=== PATIENT | male | born 1955 | race Hispanic/Latino ===

== ENCOUNTER 2019-04-30 01:38 | Inpatient (IN) | payer SELFPAY ==
[2019-04-30] MEDS ORDERED: hydrALAZINE 20 MG/ML VIAL ONE (02:23)
[2019-04-30 02:30] LABS: Anion Gap 16 mmol/L (10-20); Calc. Creatinine Clearance 0 mL/min (70-130); Calcium 7.9 mg/dL (7.8-10.44); Carbon Dioxide 16 mmol/L (23-31); Chloride 104 mmol/L (98-107); Estimated GFR-MDRD 6; Glucose 105 mg/dL (80-115); Potassium 5.2 mmol/L (3.5-5.1); Sodium 131 mmol/L (136-145)
[2019-04-30 02:36] LABS: Bilirubin Negative (Negative); Blood, Urine Negative (Negative); Clarity Clear (Clear); Glucose, Urine (Dipstick) Normal (Negative); Leukocyte Negative Leu/uL (Negative); Nitrite Negative (Negative); Protein, Urine (Dipstick) Negative (Neg-Trace); Urobilinogen Normal mg/dL (Less than 2)
[2019-04-30 02:43] LABS: BUN (Urea Nitrogen) 121 mg/dL (8.4-25.7)
[2019-04-30] MEDS ORDERED: Bisacodyl 5 MG TAB PO PRN (05:24)
[2019-04-30] MEDS ORDERED: Senokot S 8.6-50 MG TAB PO PRN (05:24)
[2019-04-30] MEDS ORDERED: Acetaminophen 325 MG TAB PO PRN (05:24)
[2019-04-30] MEDS ORDERED: Dextrose 50% Abboject 50 ML SYRINGE SLOW IVP PRN (05:52)
[2019-04-30] MEDS ORDERED: HumaLOG 300 UNITS/3 ML VIAL SC PRN (05:52)
[2019-04-30] MEDS ORDERED: Dextrose 5% in Water 1,000 ML IV PRN (05:52)
--- NOTE | 2019-04-30 07:02 | HP ---
CHIEF COMPLAINT: Abnormal lab values. HISTORY OF PRESENT ILLNESS: The patient is a 63-year-old male, with a history of hypertension, diabetes, who presents to the hospital after elevated potassium. The patient is a very pleasant 63-year-old male with history of hypertension and diabetes, who is following Nephrology due to elevated creatinine and went to get labs, was found to have potassium of 6.6. At this time, the patient was asked to come into the hospital for further evaluation. The patient currently is asymptomatic. Denies any nausea, vomiting, diarrhea, fevers, or chills. He stated that he was not feeling well about a couple of weeks ago, however, that has improved. He denies taking any ibuprofen. The patient states that he has been only taking his prescription medications. PAST MEDICAL HISTORY: Diabetes and hypertension PAST SURGICAL HISTORY: Denies. FAMILY HISTORY: History of renal stones in mom. No history of kidney problems. REVIEW OF SYSTEMS: All negative except for the ones mentioned above in the HPI. ALLERGIES: HE HAS NO KNOWN DRUG ALLERGIES. MEDICATIONS: 1. Hydrochlorothiazide 12.5 daily. 2. Metformin 500 mg twice a day. 3. Lisinopril 40 mg daily. PHYSICAL EXAMINATION: VITAL SIGNS: Temperature of 98.7, 100% on room air, pulse 87, and blood pressure 130/60. GENERAL: He is awake, alert, and oriented x3. Does not appear in distress. CV: S1 and S2 present. No murmurs, rubs, or gallops. LUNGS: Clear to auscultation. No rhonchi or wheezes noted. ABDOMEN: Soft and nontender. Bowel sounds are present x2. EXTREMITIES: No edema. Pedal pulses are present x2. NEUROVASCULAR: There are no focal deficits noted. SKIN: No cuts, lesions, or bruises noted. DIAGNOSTIC DATA: EKG, no peaked T-waves noted. T-waves were normal. LABORATORY RESULTS: WBCs of 7.3, hemoglobin of 10.1, hematocrit of 30.5. Chemistry; sodium of 131, potassium of 5.2 now, BUN of 121, creatinine of 9.05. ASSESSMENT AND PLAN: The patient is a very pleasant 63-year-old male, who presents to the hospital with abnormal lab value. 1. Hyperkalemia, most likely secondary to his underlying chronic kidney disease. Currently, potassium is 5.2. We will continue to monitor. 2. Elevated creatinine. The patient currently is asymptomatic. Nephrology has been consulted. Dialysis per Nephrology if indicated. 3. Hypertension. Would hold off on lisinopril and metformin. We will start the patient on sliding scale insulin and also p.r.n. hydralazine for now. 4. Deep venous thrombosis prophylaxis. We will put the patient on Lovenox. Job ID: [id number]
--- NOTE | 2019-04-30 08:17 | CON ---
DATE OF CONSULTATION: REASON FOR CONSULTATION: Elevated creatinine, hyperkalemia. HISTORY OF PRESENT ILLNESS: This is a 63-year-old gentleman followed by Dr. Bob, who presented to the hospital with hyperkalemia, potassium of 6.6. The patient has had poor appetite and decreasing urinary output. The patient has difficulty urinating. PAST MEDICAL HISTORY: Diabetes mellitus, hypertension, history of renal stone. SOCIAL HISTORY: No alcohol or drug use. FAMILY HISTORY: Negative for ESRD. ALLERGIES: REVIEWED. HOME MEDICATIONS: List reviewed. HOSPITAL MEDICATIONS: Reviewed. ALLERGIES: REVIEWED. REVIEW OF SYSTEMS: A 15-point review of system was performed and was negative except for positives noted above. GENERAL: HEAD: NECK: No swelling or lumps. NOSE: No epistaxis or discharge. EYES: No diplopia or pain. RESPIRATORY: CARDIOVASCULAR: GASTROINTESTINAL: /DELIMER: MUSCULOSKELETAL: No joint pain. NEUROPSYCHIATRIC SYSTEMS: No suicidal ideation. No ideation. SKIN: Denies any rash or ulcer. CONSTITUTIONAL: No fever or chills. PHYSICAL EXAMINATION: See above. The patient is awake and alert. VITAL SIGNS: Pulse 87, breathing 16, blood pressure 130/60. GENERAL APPEARANCE AND MENTAL STATUS: Fair. HEAD/NECK: Normocephalic. Atraumatic. EYES: EOMI. No deformity. EARS: Clear. No ulcers. NOSE: Intact. No lesions. MOUTH: Clear. No discharge. THROAT: Clear. No exudate. LUNGS: Clear. No crackles. CARDIAC: S1, S2. No rub. ABDOMEN: Benign. Bowel sounds positive. GENITALIA/RECTUM: Baltazar absent. BACK/EXTREMITIES: Edema 0+. NEUROLOGICAL: Alert and motor intact. SKIN: LYMPHATICS: LABORATORY DATA: Reviewed. ASSESSMENT: 1. Acute kidney disease on chronic kidney disease due to obstructive versus renal etiology. We will order imaging. 2. Hypertension, stable. 3. Anemia, stable. 4. Hyperkalemia. Continue low-potassium diet and add dialysis as needed. Job ID: [id number]
--- NOTE | 2019-04-30 09:47 | ULT ---
. US Renal Bilateral STANDARD HISTORY: Acute renal insufficiency COMPARISON: None. FINDINGS: The right kidney measures 12.4 cm in length and the left kidney measures 11.2 cm in length. There is bilateral severe hydronephrosis. No renal masses are seen. There is a Baltazar catheter in the urinary bladder. IMPRESSION: Severe bilateral hydronephrosis.
[2019-04-30 14:37] VITALS: BMI 20.9
--- NOTE | 2019-04-30 17:32 | PDOC.HOSPP ---
- Subjective Encounter Date: 04/30/19 Encounter Time: 17:30 Subjective: no pain, etc - Objective Vital Signs & Weight: Vital Signs (12 hours) Temp Pulse Resp BP Pulse Ox 04/30/19 15:40 98.5 F 89 20 165/83 H 100 04/30/19 14:29 98.0 F 85 17 170/82 H 98 Weight Weight 122 lb 6.4 oz Result Diagrams: 04/30/19 01:56 Additional Labs: Accuchecks 04/30/19 04/30/19 16:32 06:43 POC Glucose 119 H 118 H - Exam General Appearance: awake alert Neck: no JVD Heart: RRR, no murmur Respiratory: CTAB Gastrointestinal: soft, normal bowel sounds Extremities: no edema Hosp A/P (1) Acute renal failure Status: Acute Qualifiers: Acute renal failure type: unspecified Qualified Code(s): N17.9 - Acute kidney failure, unspecified (2) Obstructive uropathy Code(s): N13.9 - OBSTRUCTIVE AND REFLUX UROPATHY, UNSPECIFIED Status: Acute (3) Hydronephrosis Code(s): N13.30 - UNSPECIFIED HYDRONEPHROSIS Status: Acute Qualifiers: Hydronephrosis type: other Qualified Code(s): N13.39 - Other hydronephrosis (4) HTN (hypertension) Code(s): I10 - ESSENTIAL (PRIMARY) HYPERTENSION Status: Chronic Qualifiers: Hypertension type: essential hypertension Qualified Code(s): I10 - Essential (primary) hypertension (5) DM type 2 (diabetes mellitus, type 2) Status: Chronic Qualifiers: Diabetes mellitus half-way insulin use: without labor relations supervisor use - Plan discussed with Dr Richard de la garza po fluids plus replacement iv fluids serial BMP accu/ss kervin
[2019-04-30] MEDS: Dextrose 5 %-0.45 % NaCl 1,000 ML IV SCH (18:05)
--- NOTE | 2019-04-30 18:39 | CON ---
DATE OF CONSULTATION: 04/30/2019 HISTORY OF PRESENT ILLNESS: This is a 63-year-old male, speaks only Guyanese, who I am seeing here on the April 30, 2019. He was transferred here, I think from [place] after he was told to go to the ER because of that believe an elevated creatinine and potassium. He was found also have a distended bladder. His catheter was placed in the ER here [facility] and these drained out 1800 mL of urine. The urinalysis was negative. It was clear and his urine output has been very good since that time. He has put out over a L over the last 3 hours. His potassium is 5.2. His creatinine was 9. I do not think there is a plan right now to dialyze him. His vital signs are stable. On talking with him, it sounds like he has had some lower urinary tract symptoms for a number of months, mainly in the morning, he has a very slow stream, it takes a long time to feel like he is emptying his bladder. Does not really get up much at night. He has had no urinary tract infections, blood in the urine or burning when he pees. We had a distant history of kidney stones that he passed that was a few years back. He has not seen a urologist in town. He has not had history of prostate cancer nor family history of prostate cancer. Never had a catheter in his bladder before. He was not having back pain or abdominal pain with this distended bladder and he did have an ultrasound done that showed bilateral hydronephrosis. This was done after the Baltazar was placed, so the bladder at that point was distended already. It is described as severe bilateral hydronephrosis. His urine is somewhat bloody now. It really does not look too bad. I do not think he may need to change the catheter out unless it becomes occluded. He does not have any symptoms of a spinal cord problem. He has not had pain in his back. He has not had lower extremity weakness or numbness. PAST MEDICAL HISTORY: His medical history does include diabetes and he also has high blood pressure. PAST SURGICAL HISTORY: He has not had any surgical procedures done. MEDICATIONS: Medicines are: 1. Hydrochlorothiazide. 2. Metformin. 3. Lisinopril. PHYSICAL EXAMINATION: ABDOMEN: His flanks are nontender. His abdomen is soft and flat. Bladder is not distended. He is not circumcised. There are no lesions. No phimosis. Testicles are descended without mass or tenderness. Rectal exam reveals normal rectal tone. No rectal lesions. Really fairly significantly enlarged prostate was noted. EXTREMITIES: He has not got any lower extremity edema. IMPRESSION AND PLAN: Probably chronic renal failure related to bladder distention. This most likely happened over a fairly significant period of time. I would guess as related to the fact he has had no pain with as much urine as he had in his bladder. Hopefully, we will see his kidney function improved dramatically with drainage of his bladder. I think he does need to be watch for postobstructive diuresis, probably maintenance IV of 150 mL an hour of D5 half-normal saline. I do not think I would put any potassium in at this point, but I would check electrolytes later this evening and if his potassium is normalized, then he probably should have 10 to 20 mEq of potassium per L added as he may end up becoming hypokalemic with this diuresis. I think also he should be allowed to drink water and Gatorade probably alternating them as his thirst mechanism will probably help to correct any problems with fluid shifts that he may develop. He will need with the amount of volume he had in his bladder. He will need to leave this catheter in for probably two or three weeks before doing a bladder pressure study to see if his bladder does work or not. It is possible that this is a bladder dysfunction related outlet obstruction. He does have a large prostate on exam. However, it is certainly possible this could be related to poor bladder emptying and weak bladder related to his diabetes, but that will be figured out down the road. Right now, catheter does have to be left in, should the catheter occluded and then need be hand flushing and/or probably changed out to a larger 18, 20 or even a 22-[facility], if possible. Job ID: [id number]
[2019-04-30 18:41] LABS: Anion Gap 16 mmol/L (10-20); BUN (Urea Nitrogen) 114 mg/dL (8.4-25.7); Calc. Creatinine Clearance 7 mL/min (70-130); Calcium 8.6 mg/dL (7.8-10.44); Carbon Dioxide 19 mmol/L (23-31); Chloride 105 mmol/L (98-107); Estimated GFR-MDRD 6; Glucose 111 mg/dL (80-115); Potassium 5.6 mmol/L (3.5-5.1); Sodium 134 mmol/L (136-145)
[2019-04-30] MEDS: HumaLOG 300 UNITS/3 ML VIAL SC PRN (21:11)
[2019-05-01] MEDS: Dextrose 5 %-0.45 % NaCl 1,000 ML IV SCH ×2 (01:01→07:43)
[2019-05-01 04:41] LABS: #Eosinphils 0.1 thou/uL (0.0-0.7); #Lymphocytes 0.8 thou/uL (1.20-3.40); #Monocytes 0.4 thou/uL (0.11-0.59); #Neutrophils 6.1 thou/uL (1.40-6.50); %Basophils 0.6 % (0.0-1.0); %Lymphocytes 11.3 % (21.0-51.0); %Monocytes 4.9 % (0.0-10.0); %Neutrophils 82.2 % (42.0-75.0); Hemoglobin 9.9 g/dL (14.0-18.0); Mean Corpuscular HGB CONC 33.5 g/dL (32.0-36.0); Mean Corpuscular Hemoglobin 29.1 pg (27.0-31.0); Mean Corpuscular Volume 86.8 fL (78.0-98.0); Mean Platelet Volume 7.2 fL (7.4-10.4); Platelet Count 235 thou/uL (130-400); RBC Distribution Width 11.6 % (11.5-14.5); White Blood Cell (WBC) Count 7.4 thou/uL (4.8-10.8)
[2019-05-01 04:52] LABS: Hemoglobin A1c 6.2 % (4.0-6.0)
[2019-05-01 04:53] LABS: Anion Gap 15 mmol/L (10-20); BUN (Urea Nitrogen) 112 mg/dL (8.4-25.7); Calc. Creatinine Clearance 7 mL/min (70-130); Calcium 7.8 mg/dL (7.8-10.44); Carbon Dioxide 16 mmol/L (23-31); Chloride 104 mmol/L (98-107); Estimated GFR-MDRD 7; Glucose 173 mg/dL (80-115); Potassium 5.1 mmol/L (3.5-5.1); Sodium 130 mmol/L (136-145)
--- NOTE | 2019-05-01 07:11 | PDOC.HOSPP ---
- Subjective Encounter Date: 05/01/19 Encounter Time: 07:04 Subjective: feels well - Objective Vital Signs & Weight: Vital Signs (12 hours) Temp Pulse Resp BP Pulse Ox 05/01/19 03:57 97.3 F L 74 18 157/86 H 97 04/30/19 23:30 98.9 F 89 18 147/82 H 96 04/30/19 20:00 98.4 F 81 18 179/86 H 98 Weight Weight 122 lb 6.4 oz I&O: 04/30/19 05/01/19 05/02/19 06:59 06:59 06:59 Intake Total 2540 Output Total 3650 Balance -1110 Result Diagrams: 05/01/19 04:25 05/01/19 04:25 Additional Labs: Accuchecks 05/01/19 04/30/19 04/30/19 05:35 20:31 16:32 POC Glucose 183 H 332 H 119 H Hospitalist ROS - Medication Medications: Active Medications Generic Name Dose Route Start Last Admin Trade Name Freq PRN Reason Stop Dose Admin Insulin Human Lispro 0 units 04/30/19 20:44 04/30/19 21:11 Humalog SC 4 unit .BEDTIME SLIDING SC PRN Administration Bedtime Correctional Scale - Exam General Appearance: awake alert Neck: no JVD Heart: RRR, no murmur Respiratory: CTAB, no wheezes Gastrointestinal: soft, normal bowel sounds Extremities: no edema Hosp A/P (1) Acute renal failure Status: Acute Qualifiers: Acute renal failure type: unspecified Qualified Code(s): N17.9 - Acute kidney failure, unspecified (2) Obstructive uropathy Code(s): N13.9 - OBSTRUCTIVE AND REFLUX UROPATHY, UNSPECIFIED Status: Acute (3) Hydronephrosis Code(s): N13.30 - UNSPECIFIED HYDRONEPHROSIS Status: Acute Qualifiers: Hydronephrosis type: other Qualified Code(s): N13.39 - Other hydronephrosis (4) HTN (hypertension) Code(s): I10 - ESSENTIAL (PRIMARY) HYPERTENSION Status: Chronic Qualifiers: Hypertension type: essential hypertension Qualified Code(s): I10 - Essential (primary) hypertension (5) DM type 2 (diabetes mellitus, type 2) Status: Chronic Qualifiers: Diabetes mellitus fpc insulin use: without fpc use - Plan discussed with Dr Ramos change iv to NS due to Na 130 cont to monitor UO, BMP BP adequately controlled serial BMP accu/ss galeana
[2019-05-01] MEDS: Sodium Chloride 0.9% 1,000 ML IV SCH ×2 (07:56→16:01)
--- NOTE | 2019-05-01 08:29 | PRG ---
DATE OF SERVICE: 05/01/2019 The patient's vital signs are stable. He is afebrile. He has O2 sats that are good. Blood pressure is up slightly. His creatinine is a little bit lower at 7.8. He has had good urine output and his urine is still slightly blood tinged, but is much clear. His potassium is 5.1. At this point I am just going to leave his Baltazar catheter in and continue some IV fluid replacement based on it as well as p.o. fluid replacement hopefully will see his kidney function continued to improve with indwelling Baltazar down the road in 2 to 3 weeks when the cystometrogram done. Job ID: [id number]
[2019-05-01] MEDS ORDERED: FLU VACC QS2019-20(6MOS UP)/PF 60 MCG/0.5 ML SYRINGE IM ONE (09:00)
--- NOTE | 2019-05-01 10:01 | PRG ---
DATE OF SERVICE: 05/01/2019 SUBJECTIVE: This is a 63-year-old gentleman, being seen for acute kidney injury. The patient denied nausea, vomiting, or chest pain. OBJECTIVE: CONSTITUTIONAL: The patient is awake, alert. VITAL SIGNS: Afebrile, pulse 75, breathing 16, blood pressure 157/86. GENERAL APPEARANCE AND MENTAL STATUS: Fair. HEAD/NECK: Normocephalic. Atraumatic. EYES: EOMI. No deformity. EARS: Clear. No ulcers. NOSE: Intact. No lesions. MOUTH: Clear. No discharge. THROAT: Clear. No exudate. LUNGS: Clear. No crackles. CARDIAC: S1, S2. No rub. ABDOMEN: Benign. Bowel sounds positive. GENITALIA/RECTUM: Baltazar absent. BACK/EXTREMITIES: Edema 0+. NEUROLOGICAL: Alert and motor intact. SKIN: LYMPHATICS: LABORATORY DATA: Labs reviewed. ASSESSMENT: 1. Acute kidney injury, improved. 2. Hypertension, stable. 3. Anemia, stable. 4. Hyperkalemia, improved. No indication for dialysis. 5. Metabolic acidosis. Start the patient on sodium bicarbonate. Job ID: [id number]
[2019-05-01] MEDS: hydrALAZINE 20 MG/ML VIAL SLOW IVP PRN (12:20)
[2019-05-01] MEDS: Sodium Bicarbonate 50 MEQ in Sodium Chloride 0.9% 1,000 ML IV SCH (17:35)
[2019-05-01] MEDS: HumaLOG 300 UNITS/3 ML VIAL SC PRN (21:28)
[2019-05-02] MEDS: Sodium Bicarbonate 50 MEQ in Sodium Chloride 0.9% 1,000 ML IV SCH ×3 (01:39→15:44)
--- NOTE | 2019-05-02 09:21 | PDOC.HOSPP ---
- Subjective Encounter Date: 05/02/19 Encounter Time: 07:20 Subjective: Patient seen and examined. No new complaints. No overnight events - Objective Vital Signs & Weight: Vital Signs (12 hours) Temp Pulse Resp BP Pulse Ox 05/02/19 07:35 96 05/02/19 07:34 98.0 F 80 18 160/78 H 96 05/02/19 04:30 97.9 F 93 16 122/69 98 05/02/19 00:03 144/66 H Weight Admit Weight 122 lb 6.4 oz Weight 122 lb 6.4 oz I&O: 05/01/19 05/02/19 05/03/19 06:59 06:59 06:59 Intake Total 2540 4500 Output Total 3650 5400 Balance -1110 -900 Result Diagrams: 05/01/19 04:25 05/01/19 04:25 Additional Labs: Accuchecks 05/02/19 05/01/19 05/01/19 06:13 19:46 16:45 POC Glucose 97 253 H 140 H 05/01/19 11:23 POC Glucose 137 H Radiology Reviewed by me: Yes EKG Reviewed by me: Yes Hospitalist ROS - Review of Systems Constitutional: denies: fever, chills, sweats, weakness, malaise, other Eyes: denies: pain, vision change, conjunctivae inflammation, eyelid inflammation, redness, other ENT: denies: ear pain, ear discharge, nose pain, nose discharge, nose congestion , mouth pain, mouth swelling, throat pain, throat swelling, other Respiratory: denies: cough, dry, shortness of breath, hemoptysis, SOB with excertion, pleuritic pain, sputum, wheezing, other Cardiovascular: denies: chest pain, palpitations, orthopnea, paroxysmal noc. dyspnea, edema, light headedness, other Gastrointestinal: denies: nausea, vomiting, abdominal pain, diarrhea, constipation, melena, hematochezia, other Genitourinary: denies: dysuria, frequency, incontinence, hematuria, retention, other Musculoskeletal: denies: neck pain, shoulder pain, arm pain, back pain, hand pain, leg pain, foot pain, other Skin: denies: rash, lesions, kacey, bruising, other - Medication Medications: Active Medications Generic Name Dose Route Start Last Admin Trade Name Freq PRN Reason Stop Dose Admin Hydralazine HCl 5 mg 04/30/19 05:54 05/01/19 12:20 Apresoline SLOW IVP 5 mg Q6H PRN Administration Blood Pressure Sodium Bicarbonate 50 meq/ 1,050 mls @ 150 mls/hr 05/01/19 16:00 05/02/19 08: 07 Sodium Chloride IV 1,050 mls .Q7H DIXON Administration Insulin Human Lispro 0 units 04/30/19 20:44 05/01/19 21:28 Humalog SC 3 unit .BEDTIME SLIDING SC PRN Administration Bedtime Correctional Scale - Exam General Appearance: NAD, awake alert Eye: PERRL, anicteric sclera ENT: normocephalic atraumatic, no oropharyngeal lesions Neck: supple, symmetric, no JVD, no thyromegaly Heart: RRR, no murmur, no gallops, no rubs Respiratory: CTAB, no wheezes, no rales, no ronchi Gastrointestinal: soft, non-tender, non-distended, normal bowel sounds Extremities: no cyanosis, no clubbing, no edema Extremities - other findings: galeana+ Skin: normal turgor, no lesions Neurological: no focal deficits Musculoskeletal: normal tone, normal strength Psychiatric: normal affect, normal behavior Hosp A/P (1) Acute renal failure Status: Acute Qualifiers: Acute renal failure type: unspecified Qualified Code(s): N17.9 - Acute kidney failure, unspecified (2) Hydronephrosis Code(s): N13.30 - UNSPECIFIED HYDRONEPHROSIS Status: Acute Qualifiers: Hydronephrosis type: other Qualified Code(s): N13.39 - Other hydronephrosis (3) Obstructive uropathy Code(s): N13.9 - OBSTRUCTIVE AND REFLUX UROPATHY, UNSPECIFIED Status: Acute (4) DM type 2 (diabetes mellitus, type 2) Status: Chronic Qualifiers: Diabetes mellitus intermediate designer insulin use: without intermediate designer use (5) HTN (hypertension) Code(s): I10 - ESSENTIAL (PRIMARY) HYPERTENSION Status: Chronic Qualifiers: Hypertension type: essential hypertension Qualified Code(s): I10 - Essential (primary) hypertension (6) Hyponatremia Code(s): E87.1 - HYPO-OSMOLALITY AND HYPONATREMIA Status: Acute (7) Hyperkalemia Code(s): E87.5 - HYPERKALEMIA Status: Acute (8) Anemia, normocytic normochromic Code(s): D64.9 - ANEMIA, UNSPECIFIED Status: Chronic - Plan old records reviewed/req, plan discussed w/ family 05/02/19 monitor renal function continue IVF for post obstructive diuresis nephrology and urology following add flomax continue galeana
--- NOTE | 2019-05-02 09:41 | PRG ---
DATE OF SERVICE: 05/02/2019 SUBJECTIVE: A 63-year-old gentleman, being seen for acute kidney injury. The patient denies any nausea, vomiting, or chest pain. OBJECTIVE: GENERAL: The patient is awake and alert. VITAL SIGNS: Afebrile, pulse 80, breathing 16, blood pressure 160/78. GENERAL APPEARANCE AND MENTAL STATUS: Fair. HEAD/NECK: Normocephalic. Atraumatic. EYES: EOMI. No deformity. EARS: Clear. No ulcers. NOSE: Intact. No lesions. MOUTH: Clear. No discharge. THROAT: Clear. No exudate. LUNGS: Clear. No crackles. CARDIAC: S1, S2. No rub. ABDOMEN: Benign. Bowel sounds positive. GENITALIA/RECTUM: Baltazar absent. BACK/EXTREMITIES: Edema 0+. NEUROLOGICAL: Alert and motor intact. SKIN: LYMPHATICS: LABORATORY DATA: Pending. ASSESSMENT AND PLAN: 1. Chronic kidney disease, stage 5. Recheck labs. 2. Hypertension, stable. 3. Anemia, stable. 4. Metabolic acidosis. Check labs again. We would recommend changing the bicarb drip to D5 water with 3 amps of sodium bicarbonate instead of normal saline. Job ID: [id number]
[2019-05-02 09:48] LABS: Anion Gap 16 mmol/L (10-20); BUN (Urea Nitrogen) 90 mg/dL (8.4-25.7); Calc. Creatinine Clearance 9 mL/min (70-130); Calcium 7.5 mg/dL (7.8-10.44); Carbon Dioxide 20 mmol/L (23-31); Chloride 107 mmol/L (98-107); Estimated GFR-MDRD 8; Glucose 199 mg/dL (80-115); Potassium 4.8 mmol/L (3.5-5.1); Sodium 138 mmol/L (136-145)
--- NOTE | 2019-05-02 12:22 | PRG ---
DATE OF SERVICE: 05/02/2019 This is a 63-year-old male, I am seeing today in room 262 at [facility]. He is in with urinary retention, bilateral hydronephrosis and renal failure. His creatinine has gone from 9 on admission to 6.6 today, so it is steadily improving. He has had very good urine output. He is taking fluids okay now. It looks like he made over 5 L of urine output yesterday. Microbiology was negative at 48 hours. His carbon dioxide is 20 and it is steadily improving. Sugars have been okay. It looks like he has continued to improve in terms of a renal function. His catheter need to be 2 or 3 weeks. I will get a visit set up in my office for cystometrogram. At that time, he is reporting some occasional bladder spasm. This could be treated with some Ditropan or Detrol 1 however, they have side effects and if he is not having much in the way of spasms, I think will be probably better to keep him off these medicines, but if they persist or get worse, he could be treated with these. I will leave it up to the primary care team. I will be away this weekend and there will be a urologist on-call. For me, should Urology consultation this weekend be necessary. Otherwise, if he is still here on Sunday, I will check on him. If not, I will arrange followup in the office. Job ID: [id number]
[2019-05-02] MEDS: Sodium Chloride 0.9% 1,000 ML IV SCH (17:50)
[2019-05-02] MEDS: HumaLOG 300 UNITS/3 ML VIAL SC PRN (21:51)
[2019-05-03] MEDS: Sodium Chloride 0.9% 1,000 ML IV SCH ×2 (04:12→15:15)
[2019-05-03] MEDS: Tamsulosin HCl 0.4 MG CAP PO SCH (09:08)
--- NOTE | 2019-05-03 09:37 | PRG ---
DATE OF SERVICE: 05/03/2019 SUBJECTIVE: A 63-year-old gentleman, being seen for acute kidney injury. The patient denies any nausea, vomiting, or chest pain. OBJECTIVE: GENERAL: The patient is awake and alert. VITAL SIGNS: Afebrile. Pulse 75, breathing 16, blood pressure 132/82. GENERAL APPEARANCE AND MENTAL STATUS: Fair. HEAD/NECK: Normocephalic. Atraumatic. EYES: EOMI. No deformity. EARS: Clear. No ulcers. NOSE: Intact. No lesions. MOUTH: Clear. No discharge. THROAT: Clear. No exudate. LUNGS: Clear. No crackles. CARDIAC: S1, S2. No rub. ABDOMEN: Benign. Bowel sounds positive. GENITALIA/RECTUM: Baltazar absent. BACK/EXTREMITIES: Edema 0+. NEUROLOGICAL: Alert and motor intact. SKIN: LYMPHATICS: LABORATORY DATA: Labs reviewed. ASSESSMENT AND PLAN: 1. Chronic kidney disease, stage 5 with improvement in creatinine. Today's labs are pending. 2. Hypertension, stable. 3. Anemia, stable. 4. Hyperkalemia, stable. No indication for dialysis. Job ID: [id number]
[2019-05-03 09:54] LABS: Anion Gap 15 mmol/L (10-20); BUN (Urea Nitrogen) 78 mg/dL (8.4-25.7); Calc. Creatinine Clearance 11 mL/min (70-130); Calcium 7.3 mg/dL (7.8-10.44); Carbon Dioxide 20 mmol/L (23-31); Chloride 104 mmol/L (98-107); Estimated GFR-MDRD 10; Glucose 179 mg/dL (80-115); Sodium 134 mmol/L (136-145)
[2019-05-03 10:17] LABS: Phosphorus 4.8 mg/dL (2.3-4.7)
--- NOTE | 2019-05-03 11:50 | PDOC.HOSPP ---
- Subjective Encounter Date: 05/03/19 Encounter Time: 07:30 Subjective: Patient seen and examined. No new complaints. No overnight events - Objective Vital Signs & Weight: Vital Signs (12 hours) Temp Pulse Resp BP Pulse Ox 05/03/19 03:25 98.1 F 92 16 132/82 98 Weight Admit Weight 122 lb 6.4 oz Weight 126 lb I&O: 05/02/19 05/03/19 05/04/19 06:59 06:59 06:59 Intake Total 4500 2500 Output Total 5400 5225 Balance -900 -2042 Result Diagrams: 05/01/19 04:25 05/03/19 09:14 Additional Labs: Accuchecks 05/03/19 05/03/19 05/02/19 11:00 06:00 20:03 POC Glucose 127 H 90 273 H 05/02/19 16:13 POC Glucose 174 H Radiology Reviewed by me: Yes EKG Reviewed by me: Yes Hospitalist ROS - Review of Systems ENT: denies: ear pain, ear discharge, nose pain, nose discharge, nose congestion , mouth pain, mouth swelling, throat pain, throat swelling, other Respiratory: denies: cough, dry, shortness of breath, hemoptysis, SOB with excertion, pleuritic pain, sputum, wheezing, other Cardiovascular: denies: chest pain, palpitations, orthopnea, paroxysmal noc. dyspnea, edema, light headedness, other Gastrointestinal: denies: nausea, vomiting, abdominal pain, diarrhea, constipation, melena, hematochezia, other Genitourinary: denies: dysuria, frequency, incontinence, hematuria, retention, other Musculoskeletal: denies: neck pain, shoulder pain, arm pain, back pain, hand pain, leg pain, foot pain, other - Medication Medications: Active Medications Generic Name Dose Route Start Last Admin Trade Name Freq PRN Reason Stop Dose Admin Hydralazine HCl 5 mg 04/30/19 05:54 05/01/19 12:20 Apresoline SLOW IVP 5 mg Q6H PRN Administration Blood Pressure Sodium Chloride 1,000 mls @ 100 mls/hr 05/02/19 16:45 05/03/19 04:12 Normal Saline 0.9% IV 1,000 mls .Q10H DIXON Administration Insulin Human Lispro 0 units 04/30/19 20:44 05/02/19 21:51 Humalog SC 3 unit .BEDTIME SLIDING SC PRN Administration Bedtime Correctional Scale Tamsulosin HCl 0.4 mg 05/03/19 09:00 05/03/19 09:08 Flomax PO 0.4 mg DAILY DIXON Administration - Exam General Appearance: NAD, awake alert Eye: PERRL, anicteric sclera ENT: normocephalic atraumatic, no oropharyngeal lesions Neck: supple, symmetric, no JVD, no thyromegaly Heart: RRR, no murmur, no gallops, no rubs Respiratory: CTAB, no wheezes, no rales, no ronchi Gastrointestinal: soft, non-tender, non-distended, normal bowel sounds Extremities: no cyanosis, no clubbing, no edema Skin: normal turgor, no lesions Neurological: cranial nerve grossly intact, no focal deficits Musculoskeletal: normal tone, normal strength Psychiatric: normal affect, normal behavior Hosp A/P (1) Acute renal failure Status: Acute Qualifiers: Acute renal failure type: unspecified Qualified Code(s): N17.9 - Acute kidney failure, unspecified (2) Hydronephrosis Code(s): N13.30 - UNSPECIFIED HYDRONEPHROSIS Status: Acute Qualifiers: Hydronephrosis type: other Qualified Code(s): N13.39 - Other hydronephrosis (3) Obstructive uropathy Code(s): N13.9 - OBSTRUCTIVE AND REFLUX UROPATHY, UNSPECIFIED Status: Acute (4) DM type 2 (diabetes mellitus, type 2) Status: Chronic Qualifiers: 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: without 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 use (5) HTN (hypertension) Code(s): I10 - ESSENTIAL (PRIMARY) HYPERTENSION Status: Chronic Qualifiers: Hypertension type: essential hypertension Qualified Code(s): I10 - Essential (primary) hypertension (6) Hyponatremia Code(s): E87.1 - HYPO-OSMOLALITY AND HYPONATREMIA Status: Acute (7) Hyperkalemia Code(s): E87.5 - HYPERKALEMIA Status: Acute (8) Anemia, normocytic normochromic Code(s): D64.9 - ANEMIA, UNSPECIFIED Status: Chronic - Plan old records reviewed/req, plan discussed w/ family 05/02/19 monitor renal function continue IVF for post obstructive diuresis nephrology and urology following add flomax continue galeana 05/03/19 creatinine is improving continue IVF DC tele Transfer to medical floor stable and improving
[2019-05-03] MEDS: hydrALAZINE 20 MG/ML VIAL SLOW IVP PRN (11:57)
--- NOTE | 2019-05-03 15:03 | EKG ---
Test Reason : Blood Pressure : / mmHG Vent. Rate : 085 BPM Atrial Rate : 085 BPM P-R Int : 132 ms QRS Dur : 076 ms QT Int : 356 ms P-R-T Axes : 051 015 058 degrees QTc Int : 423 ms Normal sinus rhythm Normal ECG Confirmed by SUREKHA PIERRE ([id number]), photograph editor DEMETRIUS NGUYỄN ([id number]) on 05/03/2019 3:03:11 PM Referred By: Confirmed By:SUREKHA PIERRE
[2019-05-03] MEDS: HumaLOG 300 UNITS/3 ML VIAL SC PRN (22:56)
[2019-05-04] MEDS: Sodium Chloride 0.9% 1,000 ML IV SCH ×3 (02:18→21:16)
[2019-05-04 04:47] LABS: Anion Gap 15 mmol/L (10-20); BUN (Urea Nitrogen) 72 mg/dL (8.4-25.7); Calc. Creatinine Clearance 12 mL/min (70-130); Calcium 6.8 mg/dL (7.8-10.44); Carbon Dioxide 19 mmol/L (23-31); Chloride 100 mmol/L (98-107); Estimated GFR-MDRD 12; Glucose 183 mg/dL (80-115); Potassium 4.3 mmol/L (3.5-5.1); Sodium 130 mmol/L (136-145)
[2019-05-04] MEDS: Tamsulosin HCl 0.4 MG CAP PO SCH (07:59)
--- NOTE | 2019-05-04 12:45 | PDOC.HOSPP ---
- Subjective Encounter Date: 05/04/19 Encounter Time: 09:00 - Objective Vital Signs & Weight: Vital Signs (12 hours) Temp Pulse Resp BP BP Pulse Ox 05/04/19 11:00 97.7 F 84 18 144/79 H 98 05/04/19 08:00 98 05/04/19 07:50 98.1 F 78 18 134/76 98 05/04/19 04:27 98.3 F 86 16 137/71 98 05/04/19 00:54 98.5 F 90 16 139/78 98 Weight Admit Weight 122 lb 6.4 oz Weight 126 lb I&O: 05/03/19 05/04/19 05/05/19 06:59 06:59 06:59 Intake Total 3410 5980 Output Total 4856 8954 Balance -1306 -9916 Result Diagrams: 05/01/19 04:25 05/04/19 04:11 Additional Labs: Accuchecks 05/04/19 05/04/19 05/03/19 11:02 04:30 19:38 POC Glucose 152 H 209 H 221 H 05/03/19 17:19 POC Glucose 114 H Hospitalist ROS - Review of Systems Eyes: denies: pain, vision change, conjunctivae inflammation, eyelid inflammation, redness, other ENT: denies: ear pain, ear discharge, nose pain, nose discharge, nose congestion , mouth pain, mouth swelling, throat pain, throat swelling, other Respiratory: denies: cough, dry, shortness of breath, hemoptysis, SOB with excertion, pleuritic pain, sputum, wheezing, other Cardiovascular: denies: chest pain, palpitations, orthopnea, paroxysmal noc. dyspnea, edema, light headedness, other Gastrointestinal: denies: nausea, vomiting, abdominal pain, diarrhea, constipation, melena, hematochezia, other Genitourinary: denies: dysuria, frequency, incontinence, hematuria, retention, other Musculoskeletal: denies: neck pain, shoulder pain, arm pain, back pain, hand pain, leg pain, foot pain, other - Medication Medications: Active Medications Generic Name Dose Route Start Last Admin Trade Name Freq PRN Reason Stop Dose Admin Hydralazine HCl 5 mg 04/30/19 05:54 05/03/19 11:57 Apresoline SLOW IVP 5 mg Q6H PRN Administration Blood Pressure Sodium Chloride 1,000 mls @ 100 mls/hr 05/02/19 16:45 05/04/19 12:43 Normal Saline 0.9% IV 1,000 mls .Q10H DIXON Administration Insulin Human Lispro 0 units 04/30/19 05:52 05/04/19 05:31 Humalog SC 3 unit .MILD SLIDING SCALE PRN Administration Mild Correctional Scale Insulin Human Lispro 0 units 04/30/19 20:44 05/03/19 22:56 Humalog SC 2 unit .BEDTIME SLIDING SC PRN Administration Bedtime Correctional Scale Tamsulosin HCl 0.4 mg 05/03/19 09:00 05/04/19 07:59 Flomax PO 0.4 mg DAILY DIXON Administration - Exam General Appearance: NAD, awake alert Eye: PERRL, anicteric sclera ENT: normocephalic atraumatic, no oropharyngeal lesions Neck: supple, symmetric, no JVD, no thyromegaly Heart: RRR, no murmur, no gallops, no rubs Respiratory: CTAB, no wheezes, no rales Gastrointestinal: soft, non-tender, non-distended, normal bowel sounds Gastrointestinal - other findings: galeana + Extremities: no cyanosis, no clubbing, no edema Skin: normal turgor, no lesions Neurological: no focal deficits Musculoskeletal: normal tone, normal strength Psychiatric: normal affect, normal behavior Hosp A/P (1) Acute renal failure Status: Acute Qualifiers: Acute renal failure type: unspecified Qualified Code(s): N17.9 - Acute kidney failure, unspecified (2) Hydronephrosis Code(s): N13.30 - UNSPECIFIED HYDRONEPHROSIS Status: Acute Qualifiers: Hydronephrosis type: other Qualified Code(s): N13.39 - Other hydronephrosis (3) Obstructive uropathy Code(s): N13.9 - OBSTRUCTIVE AND REFLUX UROPATHY, UNSPECIFIED Status: Acute (4) DM type 2 (diabetes mellitus, type 2) Status: Chronic Qualifiers: Diabetes mellitus residential insulin use: 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 (5) HTN (hypertension) Code(s): I10 - ESSENTIAL (PRIMARY) HYPERTENSION Status: Chronic Qualifiers: Hypertension type: essential hypertension Qualified Code(s): I10 - Essential (primary) hypertension (6) Hyponatremia Code(s): E87.1 - HYPO-OSMOLALITY AND HYPONATREMIA Status: Acute (7) Hyperkalemia Code(s): E87.5 - HYPERKALEMIA Status: Acute (8) Anemia, normocytic normochromic Code(s): D64.9 - ANEMIA, UNSPECIFIED Status: Chronic - Plan old records reviewed/req, plan discussed w/ family 05/02/19 monitor renal function continue IVF for post obstructive diuresis nephrology and urology following add flomax continue galeana 05/03/19 creatinine is improving continue IVF DC tele Transfer to medical floor stable and improving 05/04/19 renal function continue to improve expecting discharge tomorrow if nephrology and urology clears
--- NOTE | 2019-05-04 13:00 | PRG ---
DATE OF SERVICE: 05/04/2019 SUBJECTIVE: This is a 63-year-old gentleman, being seen for acute kidney injury. The patient denied nausea or chest pain. OBJECTIVE: GENERAL: The patient is awake and alert. VITAL SIGNS: Pulse 78, breathing 16, blood pressure 134/76. GENERAL APPEARANCE AND MENTAL STATUS: Fair. HEAD/NECK: Normocephalic. Atraumatic. EYES: EOMI. No deformity. EARS: Clear. No ulcers. NOSE: Intact. No lesions. MOUTH: Clear. No discharge. THROAT: Clear. No exudate. LUNGS: Clear. No crackles. CARDIAC: S1, S2. No rub. ABDOMEN: Benign. Bowel sounds positive. GENITALIA/RECTUM: Baltazar absent. BACK/EXTREMITIES: Edema 0+. NEUROLOGICAL: Alert and motor intact. SKIN: LYMPHATICS: LABORATORY DATA: Hemoglobin is 9.9. Creatinine is 5.06. ASSESSMENT AND PLAN: 1. Acute kidney injury on chronic kidney disease stage 5, improved. 2. Hypertension, stable. 3. Anemia, stable. 4. Hyperkalemia, stable. No indication for dialysis. Job ID: [id number]
[2019-05-04] MEDS: HumaLOG 300 UNITS/3 ML VIAL SC PRN (20:59)
[2019-05-05] MEDS ORDERED: Sodium Chloride 0.9% 1,000 ML IV SCH (08:13)
[2019-05-05] MEDS: Tamsulosin HCl 0.4 MG CAP PO SCH (08:24)
[2019-05-05] MEDS: Sodium Chloride 0.9% 1,000 ML IV SCH (08:27)
[2019-05-05 09:05] LABS: #Eosinphils 0.3 thou/uL (0.0-0.7); #Monocytes 0.4 thou/uL (0.11-0.59); #Neutrophils 4.7 thou/uL (1.40-6.50); %Basophils 0.4 % (0.0-1.0); %Eosinophils 4.1 % (0.0-10.0); %Monocytes 6.3 % (0.0-10.0); %Neutrophils 73.2 % (42.0-75.0); Hemoglobin 8.9 g/dL (14.0-18.0); Mean Corpuscular HGB CONC 33.5 g/dL (32.0-36.0); Mean Corpuscular Hemoglobin 29.8 pg (27.0-31.0); Mean Platelet Volume 7.2 fL (7.4-10.4); Platelet Count 215 thou/uL (130-400); RBC Distribution Width 11.7 % (11.5-14.5); Red Blood Cell (RBC) Count 2.98 mill/uL (4.70-6.10); White Blood Cell (WBC) Count 6.4 thou/uL (4.8-10.8)
[2019-05-05 09:25] LABS: Anion Gap 14 mmol/L (10-20); BUN (Urea Nitrogen) 63 mg/dL (8.4-25.7); Calc. Creatinine Clearance 13 mL/min (70-130); Calcium 6.8 mg/dL (7.8-10.44); Carbon Dioxide 17 mmol/L (23-31); Chloride 102 mmol/L (98-107); Estimated GFR-MDRD 13; Glucose 196 mg/dL (80-115); Potassium 4.9 mmol/L (3.5-5.1); Sodium 128 mmol/L (136-145)
--- NOTE | 2019-05-05 11:06 | PRG ---
DATE OF SERVICE: 05/05/2019 SUBJECTIVE: A 63-year-old gentleman, being seen for acute kidney injury. The patient denied nausea, vomiting, or chest pain. OBJECTIVE: CONSTITUTIONAL: The patient is awake, alert. VITAL SIGNS: Afebrile, pulse 88, breathing 16, blood pressure 155/73. GENERAL APPEARANCE AND MENTAL STATUS: Fair. HEAD/NECK: Normocephalic. Atraumatic. EYES: EOMI. No deformity. EARS: Clear. No ulcers. NOSE: Intact. No lesions. MOUTH: Clear. No discharge. THROAT: Clear. No exudate. LUNGS: Clear. No crackles. CARDIAC: S1, S2. No rub. ABDOMEN: Benign. Bowel sounds positive. GENITALIA/RECTUM: Baltazar absent. BACK/EXTREMITIES: Edema 0+. NEUROLOGICAL: Alert and motor intact. SKIN: LYMPHATICS: LABORATORY DATA: Hemoglobin 8.9. Creatinine 4.6. ASSESSMENT AND PLAN: 1. Acute kidney injury, chronic kidney disease stage 5, improved. 2. Hypertension, stable. 3. Anemia, stable. 4. Hyponatremia, stable. 5. Metabolic acidosis, stable. No indication for dialysis. The patient will follow up with Dr. Diego in 1 to 2 weeks. 6. Hypocalcemia. I would recommend starting the patient on two Tums t.i.d. Job ID: [id number]
[2019-05-05 12:03] VITALS: BP 139/82; TEMP 98
--- NOTE | 2019-05-05 13:03 | DIS ---
DATE OF ADMISSION: 04/30/2019 DATE OF DISCHARGE: 05/05/2019 PRIMARY CARE PHYSICIAN: [facility] Call Admission. DISCHARGE DISPOSITION: Home. PRIMARY DISCHARGE DIAGNOSES: 1. Acute kidney failure due to obstructive uropathy. 2. Urinary retention. 3. Metabolic acidosis and hyperkalemia, resolved. SECONDARY DISCHARGE DIAGNOSES: 1. Diabetes, type 2. 2. Hypertension. 3. Anemia, chronic normocytic. PRIMARY PROCEDURE/OPERATION: None. RADIOLOGICAL INVESTIGATION: Renal ultrasound showed severe bilateral hydronephrosis. SIGNIFICANT LABORATORY DATA: WBC 6.4, hemoglobin 8.9, platelets 215. Sodium 128, potassium 4.9, BUN 63, creatinine 4.66, calcium 6.8, PSA 6.27, PTH 358, phosphorus 4.8. Urinalysis normal. Urine culture negative. DISCHARGE MEDICATIONS: 1. Flomax 0.4 mg p.o. daily. 2. Humalog insulin as per sliding scale. 3. Amlodipine 5 mg p.o. daily. CONTRAINDICATION: None. CODE STATUS: Full code. INPATIENT RELATIONSHIP ASSOC: 1. Dr. Dominick Olsen, Urology. 2. Dr. Paulino Calloway, Nephrology. TEST RESULTS PENDING ON DISCHARGE: None. ALLERGIES: NO KNOWN DRUG ALLERGIES. DISCHARGE PLAN: Posthospital, the patient will follow up with Dr. Dominick Olsen in one week as well as Dr. Jennyfer Diego in one week. The patient will follow up with primary care physician. HOSPITAL COURSE: A 63-year-old male, who was admitted by Dr. Neelima Nguyen, please see her H and P for further details. The patient was having urinary retention and the patient was found with bilateral hydronephrosis. He was admitted for abnormal labs. He was having hyperkalemia as well as acute kidney failure. He was evaluated by Urology and Nephrology while in hospital, he required Baltazar catheter and subsequently his renal function started improving slowly. The patient was also having postobstructive diuresis that was treated with IV fluid while in hospital. We have to discontinue his metformin and lisinopril because of kidney failure and instead, we started Humalog insulin as per sliding scale and amlodipine 5 mg p.o. daily for hypertension. Flomax was also prescribed. The patient will follow up with Urology and Nephrology after discharge. The patient's renal function is slowly improving and he is euvolemic and he is asymptomatic. Both consultants cleared him for discharge and they will follow up with him as an outpatient basis. The patient is discharged with Baltazar catheter in place. The patient is seen and examined at bedside today. Plan of care discussed with the patient and . PHYSICAL EXAMINATION: VITAL SIGNS: Currently, temperature 98.0, pulse 79, respiratory rate 18, saturation 100%, blood pressure 139/82. GENERAL: The patient is currently alert, awake, in no acute distress. HEENT: Head, normocephalic and atraumatic. Eyes; pupils are round, reactive to light. Extraocular muscle intact. ENT, oropharynx within normal limits. Moist mucous membranes. No oral lesion. No pharyngeal erythema. No exudate. NECK: Supple. No JVD. No meningeal signs of irritation. LUNGS: Clear to auscultation without any rhonchi or rales. CARDIAC: S1 and S2, regular. No murmur. No gallop. No rub. ABDOMEN: Soft, bowel sounds present, nontender, nondistended. No organomegaly. No mass. EXTREMITIES: No edema. : Baltazar catheter in place. NEUROLOGIC: Nonfocal examination. The patient is medically stable for discharge today. Job ID: [id number]
--- NOTE | 2019-05-05 14:08 | PRG ---
DATE OF SERVICE: 05/05/2019 He has been moved over the weekend from the telemetry floor up to [id number]. His vital signs are stable. He has had very good urine output. His creatinine has come down to 4.6. This is steadily decreasing. His hemoglobin is 8.9. Urine is clear. He is eating and drinking adequately. I do believe from my standpoint, he can be discharged home. He will come back to see me in my office on May 19 at 10:30 a.m. He has been asked to arrive at 10:10 a.m. We will do a cystometrogram and a cysto on him at that time. He will go home with the catheter in. He does not need to be on Flomax right now, so I do not think I would send him out on Flomax. Job ID: [id number]
--- NOTE | 2019-05-07 02:29 | PQF ---
Yandel Vizcaino SALIM NOORJIBHAI MD [id number] CLINICAL DOCUMENTATION CLARIFICATION FORM: POST DISCHARGE Addendum to original discharge summary date: ____ Late entry note date: __ DATE:05/07/2019 ATTN:JIMMIE CAAL MD Please exercise your independent, professional judgment in responding to the clarification form. Clinical indicators are provided on the bottom of this form for your review Please check appropriate box(s): Conflicting documentation was noted in the Medical Record, please clarify if patient is being treated/monitored for: [ ] End stage renal disease [ ] Chronic kidney disease stage 5 [ X ] Other diagnosis ___AKI with ATN due to obstructive uropathy [ ] Unable to determine For continuity of documentation, please document condition throughout progress notes and discharge summary. Thank You. CLINICAL INDICATORS - SIGNS / SYMPTOMS/ LABS PMH: End stage renal disease-Documented in ED on 04/30 by Daphne Esquivel [id number] in H&P on 04/30 by Neelima Nguyen Creatinine-9.05-Documented in H&P on 04/30 by Neelima Nguyen Acute kidney injury, Chronic kidney disease stage 5-Documented in PN on 05/05 by Paulino Calloway Hyperkalemia-Documented in hospitalist progress note on 05/04 by David Banda MD Hyponatremia-Documented in hospitalist progress note on 05/04 by David Banda MD Estimated [id number] in Laboratory RISK FACTORS Acute kidney injury,-Documented in PN on 05/05 by Paulino Calloway Hyperkalemia-Documented in hospitalist progress note on 05/04 by David Banda MD Hyponatremia-Documented in hospitalist progress note on 05/04 by David Banda MD TREATMENT Monitor renal function-Documented in hospitalist progress note on 05/04 by David Banda MD Continue IVF for post obstructive diuresis-Documented in hospitalist progress note on 05/04 by David Banda MD Nephrology and urology following -Documented in hospitalist progress note on by David Banda MD Renal function continue to improve-Documented in hospitalist progress note on by David Banda 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 All Rights Reserved [email or web address] [email or web address] [not provided] MTDD
== END 2019-05-05 15:57 | disposition home or self-care (01) | DRG 640 ==
LOC: ERS 01:38 → ERHOLD 02:50 → 2NO 14:31 → T4-B 05-03 11:40
PROVIDERS: ADMIT Internal Medicine; ATTEND Internal Medicine
DX: E87.5 Hyperkalemia (principal); N17.0 Acute kidney failure with tubular necrosis; N13.39 Other hydronephrosis; E87.2 Acidosis; E87.1 Hypo-osmolality and hyponatremia; R33.9 Retention of urine, unspecified; D64.9 Anemia, unspecified; E11.22 Type 2 diabetes mellitus with diabetic chronic kidney disease; E83.51 Hypocalcemia; I10 Essential (primary) hypertension
CPT/HCPCS: 36415; 36416; 51703; 76770; 80048; 81003; 83036; 83970; 84100; 84153; 85025; 87086; 90471; 90686; 93005; 96374; G0008; J0360; J7042; J7050

== ENCOUNTER 2019-05-20 14:33 | Inpatient (IN) | payer SELFPAY ==
[2019-05-20 15:14] LABS: #Basophils 0.1 thou/uL (0.0-0.2); #Lymphocytes 0.5 thou/uL (1.20-3.40); #Monocytes 0.6 thou/uL (0.11-0.59); #Neutrophils 11.2 thou/uL (1.40-6.50); %Basophils 0.7 % (0.0-1.0); %Eosinophils 0.1 % (0.0-10.0); %Lymphocytes 3.7 % (21.0-51.0); %Monocytes 4.5 % (0.0-10.0); Hemoglobin 11.7 g/dL (14.0-18.0); Mean Corpuscular HGB CONC 35.1 g/dL (32.0-36.0); Mean Corpuscular Hemoglobin 28.6 pg (27.0-31.0); Mean Corpuscular Volume 81.6 fL (78.0-98.0); Mean Platelet Volume 7.3 fL (7.4-10.4); Platelet Count 318 thou/uL (130-400); RBC Distribution Width 11.2 % (11.5-14.5); Red Blood Cell (RBC) Count 4.08 mill/uL (4.70-6.10); White Blood Cell (WBC) Count 12.3 thou/uL (4.8-10.8)
[2019-05-20 15:14] LABS: Bilirubin Negative (Negative); Blood, Urine 1+ (Negative); Clarity Clear (Clear); Glucose, Urine (Dipstick) 100 mg/dL (Negative); Leukocyte 500 Leu/uL (Negative); Nitrite Negative (Negative); Protein, Urine (Dipstick) 30 mg/dL (Neg-Trace); Squamous Epithelial None Seen HPF (0-3); Urobilinogen Normal mg/dL (Less than 2)
[2019-05-20 15:16] LABS: Bacteria/HPF 1+ HPF (None Seen)
--- NOTE | 2019-05-20 15:26 | CT ---
Exam: Head CT without contrast HISTORY: Level 2 stroke. Left facial droop. COMPARISON: none FINDINGS: Hemorrhage: No intraparenchymal hemorrhage or extra-axial hematoma. Brain parenchyma: Cortical berry-white matter differentiation is preserved. No mass effect or midline shift. Basilar cisterns are patent. Ventricular system: Ventricles and sulci are patent and symmetric. Calvarium: Intact. Sinuses and mastoid air cells: Adequate aeration. IMPRESSION: No acute intracranial process. Results of study discussed with Dr. Chacon to 05/20/2019 at 3:22 PM Code CR
[2019-05-20 15:36] LABS: ALT (SGPT) 13 U/L (8-55); AST (SGOT) 13 U/L (5-34); Albumin 4.3 g/dL (3.4-4.8); Alkaline Phosphatase 102 U/L (40-110); Anion Gap 16 mmol/L (10-20); BUN (Urea Nitrogen) 72 mg/dL (8.4-25.7); Bilirubin, Total 0.5 mg/dL (0.2-1.2); Calc. Creatinine Clearance 0 mL/min (70-130); Carbon Dioxide 21 mmol/L (23-31); Chloride 75 mmol/L (98-107); Estimated GFR-MDRD 11; Globulin 2.8 g/dL (2.4-3.5); Glucose 251 mg/dL (80-115); Potassium 4.7 mmol/L (3.5-5.1); Protein, Total 7.1 g/dL (5.8-8.1)
[2019-05-20 15:42] LABS: Sodium 107 mmol/L (136-145)
--- NOTE | 2019-05-20 16:08 | RAD ---
EXAM: CHEST ONE VIEW HISTORY: Altered mental status. Patient only alert to pain when EMS arrived on seen. COMPARISON: None FINDINGS: The cardiac silhouette and pulmonary vasculature is within normal limits. The lungs are clear. Remote posterior right ninth rib fracture is seen. Degenerative changes noted spine. IMPRESSION: No acute cardiopulmonary process.
[2019-05-20 16:59] LABS: Potassium 4.5 mmol/L (3.5-5.1)
[2019-05-20] MEDS ORDERED: Sodium Chloride 0.9% 1,000 ML IV SCH ×2 (17:38→18:02)
[2019-05-20] MEDS ORDERED: Guaifenesin DM 100-10/5 ML UDCUP PO PRN (18:02)
[2019-05-20] MEDS ORDERED: Ondansetron PF 4 MG/2 ML Vial IVP PRN (18:02)
[2019-05-20] MEDS ORDERED: Ondansetron ODT 4 MG TAB PO PRN (18:02)
[2019-05-20] MEDS ORDERED: HumaLOG 300 UNITS/3 ML VIAL SC PRN (18:02)
[2019-05-20] MEDS ORDERED: Dextrose 50% Abboject 50 ML SYRINGE SLOW IVP PRN (18:02)
[2019-05-20] MEDS ORDERED: Acetaminophen 650 MG Suppository PR PRN (18:02)
[2019-05-20] MEDS ORDERED: Acetaminophen 325 MG TAB PO PRN (18:02)
[2019-05-20] MEDS ORDERED: Dextrose 5% in Water 1,000 ML IV PRN (18:02)
[2019-05-20] MEDS ORDERED: Senokot S 8.6-50 MG TAB PO PRN (18:02)
[2019-05-20] MEDS ORDERED: Lorazepam 2 MG/ML VIAL SLOW IVP PRN (18:38)
[2019-05-20] MEDS ORDERED: Sodium Chloride 3% 500 ML IVPB SCH (19:15)
[2019-05-20] MEDS ORDERED: Sodium Chloride 3% 250 ML IVPB SCH (20:00)
[2019-05-20] MEDS ORDERED: Lorazepam 2 MG/ML VIAL SLOW IVP SCH (20:00)
[2019-05-20] MEDS: cefTRIAXone\\ROCEPHIN 1 GM in Sodium Chloride 0.9% 100 ML IVPB SCH (20:46)
[2019-05-20] MEDS: Heparin 5,000 UNITS/ML VIAL SC SCH (20:47)
--- NOTE | 2019-05-20 23:24 | CON ---
DATE OF CONSULTATION: 05/20/2019 CONSULTING PHYSICIAN: Agustin Chacon MD REASON FOR CONSULTATION: Hyponatremia and VALENTINA. REASON FOR ADMISSION: Altered mentation. HISTORY OF PRESENT ILLNESS: This is a 63-year-old male with history of type 2 diabetes, hypertension, CKD, urinary retention, BPH, came to the hospital with altered mentation, was found to have hyponatremia, elevated renal function. He was recently discharged from the hospital with Baltazar and was seen with Urology as outpatient. The patient has been not eating very well for the last few days and had nausea and vomiting for few days. PAST MEDICAL HISTORY: Positive for diabetes, hypertension, CKD, BPH, urinary retention. PAST SURGICAL HISTORY: None. HOME MEDICATIONS: 1. Flomax. 2. Humalog. 3. Norvasc. ALLERGIES: NO KNOWN DRUG ALLERGIES. SOCIAL HISTORY: No smoking, alcohol, or illicit drug abuse. FAMILY HISTORY: No history of kidney disease. REVIEW OF SYSTEMS: CONSTITUTIONAL: Negative for weight loss or gain, ability to conduct usual activities. SKIN: Negative for rash, itching. EYES: Negative for double vision, pain. ENT/MOUTH: Negative for nose bleeding, neck stiffness, pain, tenderness. CARDIOVASCULAR: Negative for palpitations, dyspnea on exertion, orthopnea. RESPIRATORY: Negative for shortness of breath, wheezing, cough, hemoptysis, fever or night sweats. GASTROINTESTINAL: Negative for poor appetite, abdominal pain, heartburn, nausea, vomiting, constipation, or diarrhea. GENITOURINARY: Negative for urgency, frequency, dysuria, nocturia. MUSCULOSKELETAL: Negative for pain, swelling. NEUROLOGIC/PSYCHIATRIC: Negative for anxiety, depression. ALLERGY/IMMUNOLOGIC: Negative for skin rash, bleeding tendency. Rest all negative review of systems. PHYSICAL EXAMINATION: GENERAL: This is a well-built male, in no apparent distress. VITAL SIGNS: Temperature 98.6, pulse 78, respiratory rate 18, blood pressure 147/88. HEENT: Atraumatic, normocephalic. Oral mucosa moist. NECK: Supple. CV: S1 and S2 heard. Rate and rhythm regular. RESPIRATORY: Clear. GASTROINTESTINAL: Abdomen is soft. MUSCULOSKELETAL: No edema. DERMATOLOGIC: Denies. NEUROLOGICAL: Slightly confused. LABORATORY DATA: Hemoglobin is 11.7. Potassium 4.7, sodium is 107, bicarb 21, BUN is 72, and creatinine is 5.3. ASSESSMENT AND PLAN: 1. Acute kidney injury on chronic kidney disease, stage 5 with worsening labs, most likely volume depletion. Agree with IV hydration. 2. Hyponatremia. Family reports that he is only drinking water, and not eating very well. Agree with NS for now. Agree with 1 L of NS and then 50 mL an hour. Recommend to check sodium q.6 hours. 3. Check urine osmolality, serum osmolality. 4. Edema, controlled. 5. Hypertension, stable. 6. Chronic anemia, stable. 7. Urinary retention with benign prostatic hypertrophy. Follow with Urology. Baltazar bag showed clear urine. 8. Plan is to monitor sodium closely. No acute indication for dialysis. We will follow. Job ID: [id number]
[2019-05-20 23:30] LABS: Potassium 4.1 mmol/L (3.5-5.1)
--- NOTE | 2019-05-21 01:46 | CON ---
DATE OF CONSULTATION: 05/20/2019 HISTORY OF PRESENT ILLNESS: Mr. Yandel Vizcaino is a pleasant 63-year-old male, who is accompanied by his family. He presented with confusion for several days. He was recently in the hospital with renal failure and felt to have a bladder outlet obstruction. He is also found to have I believe that he was diabetic. His family has been very compliant and make sure he sticks to his diet. He is a nonsmoker and nondrinker. He is found to be hyponatremic, was admitted to the B side in the intermediate care unit and then developed a seizure, so he was moved to the critical care unit, I was consulted. His normal weight is 136, and his family says he is down to 114 pounds, two weeks ago he weighed 124 pounds I believe. PAST MEDICAL HISTORY: Remarkable for diabetes, hypertension, and kidney stones. SOCIAL HISTORY: He is a nonsmoker and nondrinker. FAMILY HISTORY: Negative for lung disease in early age. REVIEW OF SYSTEMS: 10 point review of systems completed, per family is unremarkable other than his confusion. PHYSICAL EXAMINATION: GENERAL: Pleasant. Moves all his extremities equally. HEENT: His pupils are equal. Sclerae are anicteric. NECK: Supple VITAL SIGNS: Heart rate is 100, blood pressure 117/63, respiratory rate is in the teens, oximetry is 100%. LUNGS: Clear. HEART: Regular rhythm. ABDOMEN: Soft and nontender. EXTREMITIES: Without clubbing, cyanosis, or edema. He has an indwelling Baltazar. LABORATORY DATA: White count 12.3, hemoglobin 11.7, platelets 318. Sodium at 1635 was 108. Hemoglobin A1c 6.2 back in April. TSH was normal. Cortisol has been ordered. IMPRESSION: Hyperosmotic hyponatremia. The etiology at this point is unclear. I doubt this is secondary to adrenal insufficiency. Cortisol has been ordered, however. He should have since he sees 3% saline 250 mL over 3 hours and then he can be supported with simple saline and allowed to correct very gradually. We will be happy to follow the other physicians caring for him. TIME SPENT: This is a 70-minute consult, with greater than 50% of the time spent on the unit coordinating care. Job ID: [id number] [facility]
[2019-05-21 04:06] LABS: #Lymphocytes 0.6 thou/uL (1.20-3.40); #Monocytes 0.6 thou/uL (0.11-0.59); #Neutrophils 9.9 thou/uL (1.40-6.50); %Lymphocytes 5.3 % (21.0-51.0); %Monocytes 5.4 % (0.0-10.0); %Neutrophils 89.3 % (42.0-75.0); Hemoglobin 9.2 g/dL (14.0-18.0); Mean Corpuscular HGB CONC 35.5 g/dL (32.0-36.0); Mean Corpuscular Hemoglobin 29.3 pg (27.0-31.0); Mean Corpuscular Volume 82.6 fL (78.0-98.0); Mean Platelet Volume 7.2 fL (7.4-10.4); Platelet Count 252 thou/uL (130-400); RBC Distribution Width 11.2 % (11.5-14.5); Red Blood Cell (RBC) Count 3.15 mill/uL (4.70-6.10)
[2019-05-21 04:26] LABS: Anion Gap 13 mmol/L (10-20); BUN (Urea Nitrogen) 65 mg/dL (8.4-25.7); Calc. Creatinine Clearance 11 mL/min (70-130); Calcium 8.3 mg/dL (7.8-10.44); Carbon Dioxide 18 mmol/L (23-31); Chloride 92 mmol/L (98-107); Estimated GFR-MDRD 12; Glucose 68 mg/dL (80-115); Potassium 4.3 mmol/L (3.5-5.1)
[2019-05-21 04:33] LABS: Sodium 119 mmol/L (136-145)
--- NOTE | 2019-05-21 07:43 | HP ---
PRIMARY CARE PHYSICIAN: Gilbert may [place]. PRIMARY INDUSTRIAL COFFEE GRINDER: Dr. Diego. CHIEF COMPLAINT: Weakness and altered mental status. HISTORY OF PRESENT ILLNESS: This is a 63-year-old male who was recently hospitalized for acute renal failure secondary to urinary retention from benign prostatic hyperplasia. The patient was seen by Urology and Nephrology. He had a Baltazar placed with resolution of hydronephrosis, but he had some postobstructive diuresis and had to be given IV fluids. The patient stabilized during the hospitalization, was doing well and was discharged home. He did follow up with Dr. Olsen yesterday and had his Baltazar traded out, and then Dr. Olsen said his bladder pressures were much better at that time. The patient and the family have noted over the last week he has had a marked decrease in his strength. He has had loss of appetite, nausea and vomiting up any food he tried to eat and then today, he started becoming somewhat confused. They noticed just prior to bringing him to the ER that he had called his , as well as multiple other family members to tell them that he was going to be just fine. He does not like to complain about problems and usually tells them he is fine, but he kept calling multiple people saying this, so they went to the house to see how he was. He was confused at that time, and then he slumped over and became unresponsive. They noticed that he was twitching on one side of his face and one of his arms was twitching as well and he would not talk to them, though he still had his eyes opened and did not appear to be having a generalized seizure or any thing of that sort. He was also still breathing. EMS was called. He had this episode for about 15 to 20 minutes and then he returned to his normal mental status and function, just feeling weak, so he was brought into the ER. In the ER, he was found to have a sodium of 107. Dr. Diego was consulted, and then he gave him a liter of normal saline and then started running normal saline at 50 mL an hour. His sodium was rechecked right before I saw him and it was 108. The patient was also noted to have some little bit of bacteria in his urine, so blood and urine cultures were drawn. I did admit the patient up to the [facility] after talking with Dr. Diego and we are going to check sodium 4 hours later while he is on the normal saline. After the patient went up to the ICU, I was called over there for the patient developed a seizure. He eventually stopped breathing and became hypoxic. He was given rescue breathing, and then his seizure did stop and he started breathing spontaneously after that. He had a good pulse and blood pressure throughout and he was slowly improved from his postictal state until he is now talking again and breathing well with good oxygenation. I did talk to Dr. Diego again and Dr. Marte. We are starting on 3% sodium chloride at 40 mL/h and to have patient on seizure precautions. PAST MEDICAL HISTORY: 1. Diabetes mellitus type 2. 2. Hypertension. 3. Benign prostatic hyperplasia with urinary retention. 4. Acute tubular necrosis due to obstructive uropathy. PAST SURGICAL HISTORY: None. SOCIAL HISTORY: No tobacco, alcohol, or illicit drug use. The patient lives at home with his . He is a [employer] and does not want blood transfusions. He is a full code and states his medical decision maker, should he be incapacitated, would be his , Chelsie Vizcaino. He is mostly English-speaking only. His sister, who is present in the room, is translating for him. FAMILY HISTORY: Mother with renal stones. ALLERGIES: NO KNOWN DRUG ALLERGIES. CURRENT MEDICATIONS: 1. Flomax 0.4 mg daily. 2. Amlodipine 5 mg daily. 3. Insulin sliding scale as needed. REVIEW OF SYSTEMS: CONSTITUTIONAL: No fevers. No chills. EYES: No double vision or blurred vision. ENT: No congestion, drainage, or sore throat. CARDIOVASCULAR: No chest pain. No palpitations or racing heart. PULMONARY: No coughing, wheezing, or shortness of breath. GASTROINTESTINAL: No abdominal pain. Nausea and vomiting as per HPI, currently resolved. No diarrhea or constipation. GENITOURINARY: No dysuria or hematuria. He does have the Baltazar in place, just changed out yesterday. MUSCULOSKELETAL: No muscle aches or joint pains. SKIN: No rashes or other lesions noted. NEUROLOGIC: See HPI. No focal neurologic symptoms currently. PHYSICAL EXAMINATION: VITAL SIGNS: Blood pressure 139/75, pulse 100, respirations 20, and O2 saturation 100% on 2 L nasal cannula. GENERAL: This is a well-developed, well-nourished male, in acute distress after his seizure. HEENT: Pupils equal, round, and reactive to light. Oropharynx clear without lesions, erythema, or exudate. NECK: Supple. No lymphadenopathy. No thyroid nodules or enlargement. No JVD. HEART: Regular rate and rhythm. No murmurs, rubs, or gallops. LUNGS: Clear to auscultation bilaterally. No wheezes, crackles, or rhonchi. ABDOMEN: Soft, nontender to palpation. Normoactive bowel sounds. No hepatosplenomegaly or other masses. EXTREMITIES: No clubbing, cyanosis, or edema. SKIN: No rashes or other lesions noted. NEUROLOGIC: The patient is able to move all extremities with equal strength. He does have some little shivering motions occasionally. This is calmed down a lot since after his seizure. He has no facial droop. His speech is clear. PSYCHIATRIC: Alert and oriented x3. Normal mood and affect. LABORATORY DATA: White blood cell count 12,000 with 91% neutrophils, hemoglobin 11.7, hematocrit 33.3, and platelet count 318. Complete metabolic panel is notable for a sodium of 107, up to 108 on most recent recheck, chloride of 75, bicarb of 21, BUN of 72, creatinine of 5.37 from 4.66 at his discharge on May 05, glucose of 251. The rest is normal. Troponin is negative x1. TSH was normal. Cortisol level was 20. Lactic acid was 1.6. Serum osmolality was 260. Urinalysis showed 1+ blood, 500 leuk esterase, 4-6 rbc's, 11-20 white blood cells, and 1+ bacteria. Urine osmolality was 153 and urine sodium was less than 20. IMAGING STUDIES: Chest x-ray, I did review the chest x-ray done in the emergency room along with the radiologist's report. It does show no acute cardiopulmonary process. There was a remote right 9th rib fracture. CT of the brain done in the emergency room shows no acute intracranial process. EKG done in the emergency room shows sinus tachycardia with no ST-segment changes or T-wave abnormalities. ASSESSMENT: 1. Hyponatremia, possibly due to the patient's acute tubular necrosis and postobstructive nephropathy. Dr. Diego has been consulted. Due to the patient's seizure, we are starting 3% sodium chloride solution at 40 mL/h. We will recheck a sodium in 4 hours after starting that, which should be about 10:30. I have also consulted Dr. Marte to assist in caring for this patient in the ICU. 2. Seizures due to acute drop in sodium. We will give Ativan p.r.n. and if needed, and we will correct the sodium quickly due to the symptomatic nature of it. 3. Bacteriuria. The patient does have a Baltazar catheter in place and is not a large amount of bacteria and inflammatory cells, but given his elevated white blood cell count and neutrophilia in that, we will go ahead and start him on some Rocephin. Blood and urine cultures are pending. 4. Acute on chronic renal failure. The patient's creatinine is up again a little bit, possibly due to him being dehydrated from nausea, vomiting, and poor p.o. intake. We will monitor closely with fluids being given and Dr. Diego is following. 5. Gastrointestinal prophylaxis, put the patient on Pepcid twice a day. 6. Deep venous thrombosis prophylaxis, put the patient on heparin subcu. 7. Code status: The patient is a full code. His medical decision maker would be his , Chelsie Vizcaino. Job ID: [id number]
[2019-05-21] MEDS: Famotidine 20 MG TAB PO SCH (09:09)
[2019-05-21] MEDS: Amlodipine 5 MG TAB PO SCH (09:09)
[2019-05-21] MEDS: Heparin 5,000 UNITS/ML VIAL SC SCH ×2 (09:09→21:48)
[2019-05-21] MEDS: Tamsulosin HCl 0.4 MG CAP PO SCH (09:10)
[2019-05-21] MEDS ORDERED: Dextrose 5% in Water 500 ML IV SCH ×2 (10:00→19:15)
--- NOTE | 2019-05-21 10:23 | PRG ---
DATE OF SERVICE: 05/21/2019 SUBJECTIVE: The patient is seen and examined at the bedside and his sister is present in the room during my visit and Dr. Diego, came to see him to assess his Nephrology status. Apparently, the patient lost a lot of weight recently and he is showing some early satiety according to the sister. OBJECTIVE: VITAL SIGNS: Blood pressure is 130/66, pulse is 95, respirations 10, and O2 saturation is 100% on room air. HEENT: His head is atraumatic and normocephalic. Eyes are PERRLA. Sclerae are nonicteric. Oral mucosa is slightly dry. NECK: Supple. LUNGS: Clear. HEART: S1 and S2 normal. No S3. No S4. No any murmur. ABDOMEN: Soft, nontender, and nondistended. Bowel sounds are present. No organomegaly. EXTREMITIES: No clubbing, cyanosis, or edema. NEUROLOGIC: He follows my commands. He moves his all 4 extremities. There is no any motor deficits. LABORATORY DATA: Labs showed white count of 11.0, hemoglobin 9.2, hematocrit 26.0, and platelet count is 252,000. Sodium of 119, potassium 4.3, chloride 92, CO2 of 18, BUN 65, creatinine 5.09, glucose 68, and estimated GFR is 12. Cortisol 20.9. TSH is 1.49. IMPRESSION: 1. Hyponatremia. 2. Seizures secondary to hyponatremia. 3. Chronic renal failure. 4. Early satiety and weight loss recently. PLAN: We are going to get the CT scan of the abdomen and pelvis without IV contrast. We will continue his antibiotic for possible urinary tract infection. We are going to keep the patient on 800 mL of fluid restriction orally. He will continue on a normal saline at 75 mL/h IV fluids. We will do follow up on his sodium and kidney function and he will remain in the intensive care unit until he is more stable. Job ID: [id number]
--- NOTE | 2019-05-21 10:28 | PRG ---
DATE OF SERVICE: 05/21/2019 SUBJECTIVE: Patient was seen and examined at bedside and overnight events noted. Patient denies any shortness of breath or chest pain or palpitation. No history of nausea or vomiting or diarrhea or fever or chills or cramps. OBJECTIVE: GENERAL: This is a well-built male, in no apparent distress. VITAL SIGNS: Temperature 98.6. Heart rate 81. Respiratory rate 12. Blood pressure 102/61. HEENT: Atraumatic, normocephalic. Oral mucosa is moist. NECK: Supple. CARDIOVASCULAR: S1, S2 heard. Rate and rhythm regular. RESPIRATORY: Clear to auscultation. GASTROINTESTINAL: Abdomen is soft. MUSCULOSKELETAL: No tenderness. No edema. DERMATOLOGIC: No skin rash. NEUROLOGIC: Alert and awake and oriented x3. No focal neurologic deficits. Moving all the extremities. PSYCHIATRIC: Mood and affect normal. LABORATORY DATA: Hemoglobin is 9.2. Sodium 119 from 107 yesterday at 3:00 p.m. A little bit over correction. I will stop the IV fluids and give D5W for now. ASSESSMENT AND PLAN: 1. Severe hyponatremia with neurological manifestations including seizures - better. 2. Acute kidney injury on chronic kidney disease, stage 5, which is stable. 3. Urinary retention. 4. Benign prostatic hyperplasia. 5. Chronic anemia. 6. Acidosis - chronic Sodium level with improvement and symptoms are better. No seizures reported. We will continue close monitoring of renal function. Plan is to have D5W to drop the sodium due to fractional correction. We will follow. Job ID: [id number] MTDD
[2019-05-21 10:59] LABS: Potassium 4.1 mmol/L (3.5-5.1)
--- NOTE | 2019-05-21 11:07 | CT ---
ABDOMEN CT WITHOUT CONTRAST PELVIC CT WITHOUT CONTRAST: HISTORY: Renal failure. Early satiety. Hyponatremia. COMPARISON: None. FINDINGS: Abdomen CT: Lung bases:Dependent atelectatic changes. Heart size: Normal heart size. No significant pericardial fluid. Aorta: Visualized aorta has a normal caliber. Minimal atherosclerosis. No periaortic fat stranding. Solid organs: Limited evaluation of the solid organs by the lack of IV contrast. Grossly no solid org an abnormality. Lymph nodes: No gastrohepatic, retrocrural or periportal lymphadenopathy. Gallbladder: Contracted, likely due to nonfasting state. Mesentery: No mass, lymphadenopathy, free air or free fluid. Kidneys: Moderate bilateral hydronephrosis and hydroureter. No evidence of an obstructing calculus. M ultiple hypodensities in the left and right renal cortex. Largest hypodensity is in the upper pole of the right kidney with attenuation coefficient of 12 Hounsfield units. 2.8 x 2.0 cm cyst is favored . There are nonobstructive calculi in the right renal pelvis. Alimentary canal: Limited evaluation by the lack of oral contrast. No evidence of bowel obstruction. Ileocecal junction is unremarkable. Normal caliber appendix. Scattered fecal material in a nondistended, nondilated colon. Copious fecal material does suggest a component of constipation. CT PELVIS: No mass, adenopathy, free air or free fluid. Urinary bladder: Markedly thickened urinary bladder wall. Despite the presence of Baltazar catheter, the re is still evidence of fluid/urine in the bladder. Consider cystoscopy for further evaluation of the bladder mucosa. Mildly enlarged prostate gland is identified. Osseous structures: No lytic or blastic lesions. IMPRESSION: 1. Moderate bilateral obstructive uropathy without associated obstructing calculus. Obstructive uropa thy may in part be due to bladder outlet syndrome. Bladder outlet syndrome may be due to enlarged prostate gland. 2. Markedly thickened bladder mucosa/bladder wall. 3. Normal caliber appendix. 4. Nonobstructing calculi in the right renal pelvis. 5. Multiple hypodensities in the right and left renal cortex which are felt to be cysts. 6. Copious fecal material. Correlate for constipation. Transcribed Date/Time: 05/21/2019 11:24 AM
[2019-05-21] MEDS: HumaLOG 300 UNITS/3 ML VIAL SC PRN (11:37)
[2019-05-21] MEDS ORDERED: Polyethylene Glycol 3350 17 GM Packet PO SCH (14:45)
[2019-05-21 15:36] VITALS: BMI 21.7
[2019-05-21 17:01] LABS: Potassium 4.3 mmol/L (3.5-5.1)
--- NOTE | 2019-05-21 18:55 | PRG ---
DATE OF SERVICE: 05/21/2019 SUBJECTIVE: Yandel Vizcaino is clinically improved. OBJECTIVE: VITAL SIGNS: Stable. Blood pressures in the 130s, heart rates in the 90s, respiratory rates in the teens, oximetry is 100%. LUNGS: Clear. HEART: Regular rhythm. ABDOMEN: Soft. EXTREMITIES: No asymmetry. LABORATORY DATA: White count 11, hemoglobin 9.2, platelets 252,000. Sodium is 119 this morning, BUN 65, creatinine 5.09. IMPRESSION: 1. 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 Slowly improving. Probably needs to be managed with fluid restriction from here forward. Cultures remain negative. His antibiotics are needed to be simplified or discontinued given the lack of a clear-cut infection anywhere so far. 2. Chronic kidney disease. Needs to be followed by Nephrology. Job ID: [id number]
[2019-05-21] MEDS: cefTRIAXone\\ROCEPHIN 1 GM in Sodium Chloride 0.9% 100 ML IVPB SCH (19:20)
[2019-05-22 05:34] LABS: #Basophils 0.1 thou/uL (0.0-0.2); #Eosinphils 0.1 thou/uL (0.0-0.7); #Lymphocytes 0.9 thou/uL (1.20-3.40); #Monocytes 0.4 thou/uL (0.11-0.59); #Neutrophils 4.9 thou/uL (1.40-6.50); %Basophils 0.9 % (0.0-1.0); %Eosinophils 0.8 % (0.0-10.0); %Lymphocytes 14.6 % (21.0-51.0); %Monocytes 6.9 % (0.0-10.0); %Neutrophils 76.8 % (42.0-75.0); Hemoglobin 9.3 g/dL (14.0-18.0); Mean Corpuscular HGB CONC 33.7 g/dL (32.0-36.0); Mean Corpuscular Hemoglobin 28.8 pg (27.0-31.0); Mean Corpuscular Volume 85.6 fL (78.0-98.0); Mean Platelet Volume 7.4 fL (7.4-10.4); Platelet Count 231 thou/uL (130-400); RBC Distribution Width 11.6 % (11.5-14.5); Red Blood Cell (RBC) Count 3.21 mill/uL (4.70-6.10); White Blood Cell (WBC) Count 6.4 thou/uL (4.8-10.8)
[2019-05-22 05:53] LABS: Anion Gap 12 mmol/L (10-20); BUN (Urea Nitrogen) 64 mg/dL (8.4-25.7); Calc. Creatinine Clearance 10 mL/min (70-130); Calcium 8.7 mg/dL (7.8-10.44); Carbon Dioxide 20 mmol/L (23-31); Chloride 97 mmol/L (98-107); Estimated GFR-MDRD 11; Glucose 91 mg/dL (80-115); Potassium 4.2 mmol/L (3.5-5.1); Sodium 125 mmol/L (136-145)
[2019-05-22] MEDS ORDERED: Dextrose 5% in Water 500 ML IV SCH ×2 (06:30→18:00)
[2019-05-22] MEDS: Dextrose 5% in Water 500 ML IV SCH ×2 (06:39→07:23)
[2019-05-22] MEDS: Polyethylene Glycol 3350 17 GM Packet PO SCH (09:45)
[2019-05-22] MEDS: Tamsulosin HCl 0.4 MG CAP PO SCH (09:45)
[2019-05-22] MEDS: Amlodipine 5 MG TAB PO SCH (09:46)
[2019-05-22] MEDS: Famotidine 20 MG TAB PO SCH (09:46)
[2019-05-22] MEDS: Heparin 5,000 UNITS/ML VIAL SC SCH ×2 (09:47→20:21)
--- NOTE | 2019-05-22 10:28 | PRG ---
DATE OF SERVICE: 05/22/2019 SUBJECTIVE: Patient was seen and examined at bedside and overnight events noted. Patient denies any shortness of breath or chest pain or palpitation. No history of nausea or vomiting or diarrhea or fever or chills or cramps. OBJECTIVE: GENERAL: This is a well-built male, in no apparent distress. VITAL SIGNS: Temperature 98.0. Heart rate 78. Respiratory rate 18. Blood pressure 120/72. HEENT: Atraumatic, normocephalic. Oral mucosa is moist. NECK: Supple. CARDIOVASCULAR: S1, S2 heard. Rate and rhythm regular. RESPIRATORY: Clear to auscultation. GASTROINTESTINAL: Abdomen is soft. MUSCULOSKELETAL: No tenderness. No edema. DERMATOLOGIC: No skin rash. NEUROLOGIC: Alert and awake and oriented x3. No focal neurologic deficits. Moving all the extremities. PSYCHIATRIC: Mood and affect normal. LABORATORY DATA: Potassium is 4.2, sodium is 125, BUN is 64, and creatinine is 5.1. ASSESSMENT AND PLAN: 1. Severe hyponatremia with neurological symptoms. He is feeling better, but the correction is slightly positive that we would have anticipated and desired. He is on a D5W to slow down the correction. We will continue close monitor. My plan is to repeat labs at 2:00 p.m. and also 8:00 p.m. today. 2. Acute kidney injury on chronic kidney disease, stage 4. It seems to be chronic. No acute indication for dialysis might need in the near future. Urinary retention with benign prostatic hyperplasia on Baltazar and follow with Urology. 3. Chronic anemia. 4. Acidosis. The early satiety is most likely from hyponatremia. 5. Seizure, most likely from hyponatremia. The patient is feeling much better. We will continue close monitoring of sodium. Job ID: [id number]
[2019-05-22] MEDS: HumaLOG 300 UNITS/3 ML VIAL SC PRN ×2 (11:33→17:29)
--- NOTE | 2019-05-22 13:19 | PDOC.HOSPP ---
- Subjective Encounter Date: 05/22/19 Encounter Time: 11:00 Subjective: awake, oriented well and sister at bedside no nausea or abd pain or sob - Objective Vital Signs & Weight: Vital Signs (12 hours) Temp Pulse BP Pulse Ox 05/22/19 09:46 78 120/72 05/22/19 08:00 100 05/22/19 07:36 100 05/22/19 07:00 98.0 F 05/22/19 04:00 98.4 F Weight Admit Weight 111 lb Weight 111 lb 8.862 oz Most Recent Monitor Data Heart Rate from ECG 84 NIBP 139/77 NIBP BP-Mean 97 Respiration from ECG 14 SpO2 100 I&O: 05/21/19 05/22/19 05/23/19 06:59 06:59 06:59 Intake Total 509 2375 897 Output Total 1102 2595 860 Balance -593 -220 37 Result Diagrams: 05/22/19 05:20 05/22/19 05:20 Additional Labs: Accuchecks 05/22/19 05/22/19 05/21/19 11:33 05:29 21:09 POC Glucose 220 H 97 189 H 05/21/19 05/20/19 16:06 15:01 POC Glucose 112 H 281 H Hospitalist ROS - Medication Medications: Active Medications Generic Name Dose Route Start Last Admin Trade Name Freq PRN Reason Stop Dose Admin Amlodipine Besylate 5 mg 05/21/19 09:00 05/22/19 09:46 Norvasc PO 5 mg DAILY DIXON Administration Famotidine 20 mg 05/21/19 09:00 05/22/19 09:46 Pepcid PO 20 mg DAILY DIXON Administration Heparin Sodium (Porcine) 5,000 units 05/21/19 21:00 05/22/19 09:47 Heparin SC 5,000 units BID DIXON Administration Insulin Human Lispro 0 units 05/20/19 18:02 05/22/19 11:33 Humalog SC 3 unit .MILD SLIDING SCALE PRN Administration Mild Correctional Scale Insulin Human Lispro 0 units 05/20/19 18:02 05/20/19 20:50 Humalog SC 4 unit .BEDTIME SLIDING SC PRN Administration Bedtime Correctional Scale Polyethylene Glycol 17 gm 05/22/19 09:00 05/22/19 09:45 Miralax PO 17 gm DAILY DIXON Administration Tamsulosin HCl 0.4 mg 05/21/19 09:00 05/22/19 09:45 Flomax PO 0.4 mg DAILY DIXON Administration - Exam General Appearance: awake alert Eye: PERRL, anicteric sclera ENT: no oropharyngeal lesions, moist mucosa Neck: supple, no JVD Heart: RRR, no murmur Respiratory: no wheezes, no rales Gastrointestinal: soft, non-tender, non-distended, normal bowel sounds Extremities: no cyanosis, no edema Neurological: cranial nerve grossly intact, no focal deficits Psychiatric: normal affect, A&O x 3 Hosp A/P (1) CKD (chronic kidney disease) stage 5, GFR less than 15 ml/min Code(s): N18.5 - CHRONIC KIDNEY DISEASE, STAGE 5 Status: Acute (2) Hydronephrosis Code(s): N13.30 - UNSPECIFIED HYDRONEPHROSIS Status: Chronic Qualifiers: Hydronephrosis type: other (3) Hyponatremia Code(s): E87.1 - HYPO-OSMOLALITY AND HYPONATREMIA Status: Acute (4) Obstructive uropathy Code(s): N13.9 - OBSTRUCTIVE AND REFLUX UROPATHY, UNSPECIFIED Status: Chronic (5) Anemia, normocytic normochromic Code(s): D64.9 - ANEMIA, UNSPECIFIED Status: Chronic (6) DM type 2 (diabetes mellitus, type 2) Status: Chronic Qualifiers: Diabetes mellitus halfway insulin use: with halfway use Diabetes mellitus complication detail: with chronic kidney disease Chronic kidney disease stage: stage 5, not on chronic dialysis (7) HTN (hypertension) Code(s): I10 - ESSENTIAL (PRIMARY) HYPERTENSION Status: Chronic Qualifiers: - Plan has h/o ckd dating back to august 2018 when his creatinine was 5 then. needs avf in preparation for impending HD I have d/w patient, and sister about applying for medicare he will have outpt f/u with for likely prostate biopsy sodium is stable now dietary consultation for help with precise help for ckd5 diet continue norvasc and flomax to ambulate as tolerated dc planning
[2019-05-22 14:18] LABS: Potassium 4.2 mmol/L (3.5-5.1)
[2019-05-22 20:36] LABS: Potassium 4.2 mmol/L (3.5-5.1)
[2019-05-23 06:49] LABS: #Eosinphils 0.1 thou/uL (0.0-0.7); #Monocytes 0.5 thou/uL (0.11-0.59); #Neutrophils 5.6 thou/uL (1.40-6.50); %Basophils 0.6 % (0.0-1.0); %Eosinophils 1.3 % (0.0-10.0); %Lymphocytes 14.2 % (21.0-51.0); %Monocytes 7.4 % (0.0-10.0); %Neutrophils 76.5 % (42.0-75.0); Mean Corpuscular HGB CONC 32.7 g/dL (32.0-36.0); Mean Corpuscular Hemoglobin 28.2 pg (27.0-31.0); Mean Corpuscular Volume 86.3 fL (78.0-98.0); Platelet Count 245 thou/uL (130-400); RBC Distribution Width 11.7 % (11.5-14.5); Red Blood Cell (RBC) Count 3.17 mill/uL (4.70-6.10); White Blood Cell (WBC) Count 7.3 thou/uL (4.8-10.8)
[2019-05-23 07:08] LABS: Anion Gap 13 mmol/L (10-20); BUN (Urea Nitrogen) 62 mg/dL (8.4-25.7); Calc. Creatinine Clearance 11 mL/min (70-130); Calcium 8.8 mg/dL (7.8-10.44); Carbon Dioxide 21 mmol/L (23-31); Chloride 98 mmol/L (98-107); Estimated GFR-MDRD 12; Glucose 93 mg/dL (80-115); Potassium 4.2 mmol/L (3.5-5.1); Sodium 128 mmol/L (136-145)
[2019-05-23] MEDS: Famotidine 20 MG TAB PO SCH (08:16)
[2019-05-23] MEDS: Tamsulosin HCl 0.4 MG CAP PO SCH (08:16)
[2019-05-23] MEDS: Amlodipine 5 MG TAB PO SCH (08:17)
[2019-05-23] MEDS: Heparin 5,000 UNITS/ML VIAL SC SCH ×2 (08:17→20:28)
[2019-05-23] MEDS: Polyethylene Glycol 3350 17 GM Packet PO SCH (08:18)
--- NOTE | 2019-05-23 09:05 | PRG ---
DATE OF SERVICE: 05/23/2019 SUBJECTIVE: Patient was seen and examined at bedside and overnight events noted. Patient denies any shortness of breath or chest pain or palpitation. No history of nausea or vomiting or diarrhea or fever or chills or cramps. OBJECTIVE: GENERAL: This is a well-built male, in no apparent distress. VITAL SIGNS: Temperature 98.5. Heart rate 70. Respiratory rate 16. Blood pressure 135/83. HEENT: Atraumatic, normocephalic. Oral mucosa is moist. NECK: Supple. CARDIOVASCULAR: S1, S2 heard. Rate and rhythm regular. RESPIRATORY: Clear to auscultation. GASTROINTESTINAL: Abdomen is soft. MUSCULOSKELETAL: No tenderness. No edema. DERMATOLOGIC: No skin rash. NEUROLOGIC: Alert and awake and oriented x3. No focal neurologic deficits. Moving all the extremities. PSYCHIATRIC: Mood and affect normal. LABORATORY DATA: Potassium is 4.2, sodium is 128, BUN is 62, and creatinine is 4.7. ASSESSMENT AND PLAN: 1. Severe hyponatremia, getting better. Seems to be most likely from volume depletion from his postobstructive diuresis. 2. Edema, controlled. 3. Chronic anemia. 4. Acute kidney injury on chronic kidney disease, stage 4 with improvement. 5. Seizure secondary to hyponatremia. Sodium level is better, slowly getting corrected, asymptomatic currently. We will watch one more day and if stable, okay to discharge. No acute indication for dialysis. Job ID: [id number]
[2019-05-23] MEDS: HumaLOG 300 UNITS/3 ML VIAL SC PRN (12:10)
--- NOTE | 2019-05-23 13:12 | PRG ---
DATE OF SERVICE: 05/23/2019 This is a 63-year-old male I saw in the hospital a month or so ago and saw in my office last week for cystometrogram. He has renal insufficiency and bilateral hydro. This is most likely related to bladder outlet obstruction. I did a cystometrogram on him last week and his bladder actually does work and has very high pressure and does not void completely and so this is all consistent with bladder outlet obstruction. A cysto showed enlarged prostate with large median lobe causing a ball-valve effect. I think he would probably resume normal voiding with a TURP and we have talked about doing that. He was admitted with a seizure because of hyponatremia that seems to be of now correcting. He does still have his Baltazar catheter and I guess a new one was placed. His family said there is some swelling after placing the catheter, so I examined him and he has paraphimosis, which I did reduce and this is why was swollen. He is also a [employer] and he is already anemic from his chronic renal insufficiency, so the question of doing a TURP on him and possible problems related to bleeding and inability to transfuse him because of his marcellus. I asked him to talk with his reading interventionist and is possible that he could benefit from Procrit or something like that to increase his hematocrit prior to undergoing a surgery. Dictating a note on this so that hopefully they will notice that and perhaps can help him with that. Probably in the next 2 to 4 weeks, we could look doing a surgery. I would like him to be sure he does not have any further problems with seizure activity prior to an anesthetic. Job ID: [id number]
--- NOTE | 2019-05-23 13:28 | PDOC.HOSPP ---
- Subjective Encounter Date: 05/23/19 Encounter Time: 08:35 Subjective: no sob or pain at bedside - Objective Vital Signs & Weight: Vital Signs (12 hours) Temp Pulse Resp BP Pulse Ox 05/23/19 08:17 78 05/23/19 08:00 98.7 F 76 16 132/84 99 05/23/19 04:34 98.5 F 78 16 135/83 100 Weight Admit Weight 111 lb Weight 107 lb 6.4 oz Most Recent Monitor Data Heart Rate from ECG 84 NIBP 139/77 NIBP BP-Mean 97 Respiration from ECG 14 SpO2 100 I&O: 05/22/19 05/23/19 05/24/19 06:59 06:59 06:59 Intake Total 2375 897 240 Output Total 5534 3060 Balance -220 -2163 240 Result Diagrams: 05/23/19 05:20 05/23/19 05:20 Additional Labs: Accuchecks 05/23/19 05/23/19 05/22/19 11:28 04:33 19:35 POC Glucose 269 H 100 170 H 05/22/19 17:05 POC Glucose 239 H Hospitalist ROS - Medication Medications: Active Medications Generic Name Dose Route Start Last Admin Trade Name Freq PRN Reason Stop Dose Admin Amlodipine Besylate 5 mg 05/21/19 09:00 05/23/19 08:17 Norvasc PO 5 mg DAILY DIXON Administration Famotidine 20 mg 05/21/19 09:00 05/23/19 08:16 Pepcid PO 20 mg DAILY DIXON Administration Heparin Sodium (Porcine) 5,000 units 05/21/19 21:00 05/23/19 08:17 Heparin SC 5,000 units BID DIXON Administration Insulin Human Lispro 0 units 05/20/19 18:02 05/23/19 12:10 Humalog SC 4 unit .MILD SLIDING SCALE PRN Administration Mild Correctional Scale Insulin Human Lispro 0 units 05/20/19 18:02 05/20/19 20:50 Humalog SC 4 unit .BEDTIME SLIDING SC PRN Administration Bedtime Correctional Scale Polyethylene Glycol 17 gm 05/22/19 09:00 05/23/19 08:18 Miralax PO 17 gm DAILY DIXON Administration Sodium Chloride 10 ml 05/20/19 18:54 05/23/19 08:18 Flush - Normal Saline IVF 10 ml PRN PRN Administration Saline Flush Tamsulosin HCl 0.4 mg 05/21/19 09:00 05/23/19 08:16 Flomax PO 0.4 mg DAILY DIXON Administration - Exam General Appearance: awake alert Eye: PERRL, anicteric sclera ENT: no oropharyngeal lesions, moist mucosa Neck: supple, no JVD Heart: RRR, no murmur Respiratory: no wheezes, no rales Gastrointestinal: soft, non-tender, non-distended, normal bowel sounds Extremities: no cyanosis, no edema Neurological: cranial nerve grossly intact, no focal deficits Hosp A/P (1) CKD (chronic kidney disease) stage 5, GFR less than 15 ml/min Code(s): N18.5 - CHRONIC KIDNEY DISEASE, STAGE 5 Status: Acute (2) Hydronephrosis Code(s): N13.30 - UNSPECIFIED HYDRONEPHROSIS Status: Chronic Qualifiers: Hydronephrosis type: other (3) Hyponatremia Code(s): E87.1 - HYPO-OSMOLALITY AND HYPONATREMIA Status: Acute (4) Obstructive uropathy Code(s): N13.9 - OBSTRUCTIVE AND REFLUX UROPATHY, UNSPECIFIED Status: Chronic (5) Anemia, normocytic normochromic Code(s): D64.9 - ANEMIA, UNSPECIFIED Status: Chronic (6) DM type 2 (diabetes mellitus, type 2) Status: Chronic Qualifiers: Diabetes mellitus termite exterminator insulin use: with termite exterminator use Diabetes mellitus complication detail: with chronic kidney disease Chronic kidney disease stage: stage 5, not on chronic dialysis (7) HTN (hypertension) Code(s): I10 - ESSENTIAL (PRIMARY) HYPERTENSION Status: Chronic Qualifiers: - Plan has h/o ckd dating back to august 2018 when his creatinine was 5 then. needs avf in preparation for impending HD I have d/w patient, and sister about applying for medicare he will have outpt f/u with for nathan in 3-4 weeks. sodium is stable now dietary consultation for help with precise help for ckd5 diet continue norvasc and flomax to ambulate as tolerated dc plan in am nephrology to start procrit, unsure if he can afford it without insurance?.
[2019-05-24 06:46] LABS: #Eosinphils 0.1 thou/uL (0.0-0.7); #Lymphocytes 1.1 thou/uL (1.20-3.40); #Monocytes 0.4 thou/uL (0.11-0.59); %Basophils 0.7 % (0.0-1.0); %Eosinophils 1.4 % (0.0-10.0); %Lymphocytes 19.2 % (21.0-51.0); %Monocytes 7.4 % (0.0-10.0); %Neutrophils 71.2 % (42.0-75.0); Mean Corpuscular HGB CONC 34.9 g/dL (32.0-36.0); Mean Corpuscular Hemoglobin 30.3 pg (27.0-31.0); Mean Corpuscular Volume 86.7 fL (78.0-98.0); Mean Platelet Volume 6.9 fL (7.4-10.4); Platelet Count 257 thou/uL (130-400); RBC Distribution Width 11.7 % (11.5-14.5); Red Blood Cell (RBC) Count 2.98 mill/uL (4.70-6.10); White Blood Cell (WBC) Count 5.6 thou/uL (4.8-10.8)
[2019-05-24 07:05] LABS: Anion Gap 14 mmol/L (10-20); BUN (Urea Nitrogen) 64 mg/dL (8.4-25.7); Calc. Creatinine Clearance 11 mL/min (70-130); Calcium 8.9 mg/dL (7.8-10.44); Carbon Dioxide 21 mmol/L (23-31); Chloride 102 mmol/L (98-107); Estimated GFR-MDRD 12; Glucose 92 mg/dL (80-115); Potassium 4.5 mmol/L (3.5-5.1); Sodium 132 mmol/L (136-145)
[2019-05-24 07:12] VITALS: BP 143/78; TEMP 98.1
[2019-05-24] MEDS: Famotidine 20 MG TAB PO SCH (07:52)
[2019-05-24] MEDS: Amlodipine 5 MG TAB PO SCH (07:53)
[2019-05-24] MEDS: Tamsulosin HCl 0.4 MG CAP PO SCH (07:53)
[2019-05-24] MEDS: Polyethylene Glycol 3350 17 GM Packet PO SCH (07:53)
[2019-05-24] MEDS: Heparin 5,000 UNITS/ML VIAL SC SCH (07:53)
[2019-05-24] MEDS ORDERED: EPOETIN ALFA-EPBX (ESRD) 3,000 UNIT/ML VIAL SC SCH (08:56)
[2019-05-24] MEDS ORDERED: EPOETIN ALFA-EPBX (ESRD) 2,000 UNIT/ML VIAL SC SCH (09:15)
--- NOTE | 2019-05-24 13:13 | PRG ---
DATE OF SERVICE: 05/24/2019 SUBJECTIVE: Patient was seen and examined at bedside and overnight events noted. Patient denies any shortness of breath or chest pain or palpitation. No history of nausea or vomiting or diarrhea or fever or chills or cramps. OBJECTIVE: GENERAL: This is a well-built male, in no apparent distress. VITAL SIGNS: Temperature . Heart rate . Respiratory rate 18. Blood pressure 143/78. HEENT: Atraumatic, normocephalic. Oral mucosa is moist NECK: Supple. CARDIOVASCULAR: S1, S2 heard. Rate and rhythm regular. RESPIRATORY: Clear to auscultation. GASTROINTESTINAL: Abdomen is soft. MUSCULOSKELETAL: No tenderness. No edema. DERMATOLOGIC: No skin rash. NEUROLOGIC: Alert and awake and oriented X3. No focal neurologic deficits. Moving all the extremities. PSYCHIATRIC: Mood and affect normal. LABORATORY DATA: Sodium 132, potassium 4.5, BUN is 64, creatinine is 4.8. ASSESSMENT AND PLAN: 1. Severe hyponatremia, much better. 2. Edema, controlled. 3. History of hypertension. 4. Chronic anemia. 5. Acute kidney injury on chronic kidney disease stage 4, stable. 6. Urinary retention with benign prostatic hypertrophy. 7. Seizure, better. 8. Anemia. Plan to add Epogen and may need to arrange as outpatient. We will follow. Job ID: [id number]
--- NOTE | 2019-05-24 17:16 | DIS ---
DATE OF ADMISSION: 05/20/2019 DATE OF DISCHARGE: 05/24/2019 DISCHARGE DISPOSITION: Home. PRIMARY DISCHARGE DIAGNOSES: Hyponatremia, resolved; acute kidney injury on top of chronic kidney disease, stage 5; obstructive hydronephrosis, bilateral with indwelling Baltazar catheter; acute metabolic encephalopathy on arrival due to hyponatremia, resolved; chronic anemia, secondary to chronic kidney disease; diabetes mellitus, type 2; hypertension. PROCEDURES DONE DURING HOSPITALIZATION: CT brain done showed no acute intracranial abnormality. Chest x-ray done showed no acute cardiopulmonary abnormality. Abdominal and pelvic CT scan without contrast done showed moderate bilateral obstructive uropathy without associated obstructing calculus, obstruction likely is bladder outlet. He had markedly enlarged bladder mucosa/bladder wall. Blood cultures x2, no growth. Hemoglobin and hematocrit of 9 and 25, MCV 86, platelet count 257. Initial sodium was 107, discharge sodium 132, BUN 64, creatinine 4.8, serum bicarb 21, random cortisol was 20. TSH 1.49. Initial BUN and creatinine were 72 and 5.3, serum osmolality was 260 milliosmoles, urine osmolality 153. Urine sodium was less than 20. Urine protein was 30 mg/dL. DISCHARGE MEDICATIONS: 1. Norvasc 5 mg p.o. daily. 2. Humalog sliding scale 3 times daily. 3. Flomax 0.4 mg daily. INPATIENT CONSULT: Dr. Olsen for Urology, Dr. Diego for Nephrology. BRIEF COURSE DURING HOSPITALIZATION: The patient initially came in with altered mental state and generalized weakness. His initial sodium was 107 and was placed in ICU. He was on 3% sodium chloride solution due to acute metabolic encephalopathy. He had known history of CKD stage 4/5. He had acute kidney injury on top of it. The patient's sodium slowly was trending back toward baseline. 48 hours into hospitalization, the patient was downgraded to medical floor. Dr. Diego was closely monitoring his renal function and electrolytes. Prior to discharge, he is ambulating and eating well. He likely will need access planned for impending end-stage renal disease. Dr. Diego will be following him in the outpatient setting. He also got a dose of Epogen 5000 units today. He will likely get this through Dr. Diego's outpatient clinic once weekly. He is also in the process of obtaining Medicare. He is hemodynamically stable, and Nephrology has cleared him for discharge today. Please note, I have seen and examined the patient for the day of discharge. Job ID: [id number]
--- NOTE | 2019-05-26 23:10 | PQF ---
[employer] Industrial Relations Officer Crystal Reports [employer] NEHAL Horn ROSY LINDSAY MD [id number] CLINICAL DOCUMENTATION CLARIFICATION FORM: POST DISCHARGE Addendum to original discharge summary date: ____ Late entry note date: __ DATE: 05/26/19 ATTN: Rosy Lindsay Please exercise your independent, professional judgment in responding to the clarification form. Clinical indicators are provided on the bottom of this form for your review Can you please further clarify if "syndrome of inappropriate antidiuretic hormone" SIADH [ x ] Ruled in diagnosis [ ] Continue to treat [ x] Resolved [ ] Ruled out diagnosis [ ] Cannot rule out diagnosis [ ] Other diagnosis [ ] Unable to determine In addition, please specify: Present on Admission (POA): [x ] Yes [ ] No [ ] Unable to determine For continuity of documentation, please document condition throughout progress notes and discharge summary. Thank You. CLINICAL INDICATORS - SIGNS / SYMPTOMS / LABS H and P pg.1- Chief complaint: weakness and altered mental status PN 2 Dr. Marte pg.1- syndrome of inappropriate antidiuretic hormone associated with seizure PN 05/22 pg.1- severe hyponatremia DS pg.1- Primary discharge diagnosis: hyponatremia,resolved, acute kidney injury Laboratory- Sodium: 107, 108, 118, 119, 119L 124 123, 125L RISK FACTORS DM- H and P pg.2 Hypertension- H ad P pg.2 Acute on chronic renal failure- H and P pg.4 Acute metabolic encephalopathy- DS pg.1 TREATMENTS IV fluids- MAR Nephrology Consult 05/20 Dr. Diego Sodium Monitoring- Laboratory I and O monitoring (This form is maintained as a part of the permanent medical record) 2014 [employer]. All Rights Reserved [email or web address]
[2019-05-31] MEDS ORDERED: EPOETIN ALFA-EPBX (ESRD) 10,000 UNIT/ML VIAL SC SCH (12:00)
== END 2019-05-24 13:35 | disposition home or self-care (01) | DRG 643 ==
LOC: ERS 14:33 → IMCU/EMU 16:21 → CCU 17:30 → T4-B 05-22 12:03
PROVIDERS: ADMIT Internal Medicine; ATTEND Internal Medicine
DX: E22.2 Syndrome of inappropriate secretion of antidiuretic hormone (principal); G93.41 Metabolic encephalopathy; N17.9 Acute kidney failure, unspecified; I12.0 Hypertensive chronic kidney disease with stage 5 chronic kidney disease or end stage renal disease; N13.8 Other obstructive and reflux uropathy; E87.2 Acidosis; N18.5 Chronic kidney disease, stage 5; N13.30 Unspecified hydronephrosis; D63.1 Anemia in chronic kidney disease; N40.1 Benign prostatic hyperplasia with lower urinary tract symptoms; R33.8 Other retention of urine; R82.71 Bacteriuria; E11.22 Type 2 diabetes mellitus with diabetic chronic kidney disease; Z79.4 Long term (current) use of insulin; Z79.899 Other long term (current) drug therapy
CPT/HCPCS: 36415; 36416; 70450; 71045; 74176; 80048; 80053; 81003; 81015; 82533; 83605; 83930; 83935; 84300; 84443; 84484; 85025; 87040; 87077; 87086; 87186; 93005; 96360; J0696; J1644; J2060; J3490; J7070; J7131; Q5105

== ENCOUNTER 2019-08-07 15:20 | Outpatient (CLI) | payer MEDICAID ==
--- NOTE | 2019-08-07 16:12 | RAD ---
Chest 2 views HISTORY: Hypertension. COMPARISON: 05/20/2019. FINDINGS: Cardiac silhouette and pulmonary vasculature are unremarkable. Mediastinum is midline. No c onfluent airspace consolidation, pneumothorax, or pleural fluid. IMPRESSION : No active cardiopulmonary abnormalities are demonstrated.
--- NOTE | 2019-08-07 16:16 | ULT ---
Venous duplex sonogram bilateral upper extremity for vein mapping HISTORY: Renal disease. Need for long-term dialysis access. FINDINGS: Good color and spectral Doppler flow within each internal jugular and subclavian vein and each axilla ry, brachial, cephalic, and basilic vein. Measurements are as follows: (Millimeter) Right: Brachial artery 4 mm Radial artery 2 Ulnar artery 3 Cephalic vein proximal humerus 4 Midhumerus 4 Distal humerus 3 Antecubital fossa 4 Proximal forearm 4 Mid forearm 4 Distal forearm 3 Basilic vein proximal humerus 7 Mid humerus 5 Distal humerus 4 Antecubital fossa 4 Proximal forearm 2 Mid forearm 2 Distal forearm 2 Left: Brachial artery 4 Radial artery 2 Ulnar artery 2 Cephalic vein proximal humerus 5 Midhumerus 4 Distal humerus 4 Antecubital fossa 4 Proximal forearm 4 Mid forearm 4 Distal forearm 4 Basilic vein proximal humerus 4 Mid humerus 4 Distal humerus 3 Antecubital fossa 4 Proximal forearm 2 Mid forearm 1 Distal forearm 1 IMPRESSION : Patent vascular structures throughout each upper extremity, with measurements as detailed above.
== END 2019-08-07 15:21 | disposition home or self-care (01) ==
LOC: BICULT 15:20
PROVIDERS: ATTEND Internal Medicine Nephrology
DX: I12.0 Hypertensive chronic kidney disease with stage 5 chronic kidney disease or end stage renal disease (principal); N18.5 Chronic kidney disease, stage 5
CPT/HCPCS: 36415; 71046; 80053; 82728; 83540; 83550; 85014; 85018; 86706; 86803; 87340; 93970; G0365

== ENCOUNTER 2019-08-21 06:04 | Outpatient (CLI) | payer MEDICARE, MEDICAID, OTHER ==
[2019-08-21 16:00] LABS: Hemoglobin 11.8 g/dL (14.0-18.0); Mean Corpuscular HGB CONC 32.8 g/dL (32.0-36.0); Mean Corpuscular Hemoglobin 28.7 pg (27.0-31.0); Mean Corpuscular Volume 87.3 fL (78.0-98.0); Mean Platelet Volume 7.4 fL (7.4-10.4); Platelet Count 169 thou/uL (130-400); Red Blood Cell (RBC) Count 4.11 mill/uL (4.70-6.10); White Blood Cell (WBC) Count 5.1 thou/uL (4.8-10.8)
[2019-08-21 16:09] LABS: Prothrombin Time 13.3 sec (12.0-14.7)
[2019-08-21 16:10] LABS: PTT 28.3 SEC (22.9-36.1)
[2019-08-21 16:20] LABS: Anion Gap 15 mmol/L (10-20); BUN (Urea Nitrogen) 74 mg/dL (8.4-25.7); Calc. Creatinine Clearance 0 mL/min (70-130); Calcium 8.4 mg/dL (7.8-10.44); Carbon Dioxide 21 mmol/L (23-31); Chloride 100 mmol/L (98-107); Estimated GFR-MDRD 11; Glucose 325 mg/dL (80-115); Potassium 4.4 mmol/L (3.5-5.1); Sodium 132 mmol/L (136-145)
[2019-08-22 11:42] LABS: SARS-CoV-2 MS2 Positive; SARS-CoV-2 N Gene Negative; SARS-CoV-2 S Gene Negative; SARS-CoV-2 orf1ab Negative
== END 2019-08-21 06:05 | disposition home or self-care (01) ==
LOC: LABBT 06:04
PROVIDERS: ATTEND Urology
DX: Z01.812 Encounter for preprocedural laboratory examination (principal); Z11.59 Encounter for screening for other viral diseases; R33.9 Retention of urine, unspecified
CPT/HCPCS: 80048; 85027; 85610; 85730; 87635; U0003

== ENCOUNTER 2019-08-25 07:10 | Inpatient (IN) | payer MEDICARE, MEDICAID ==
[2019-08-21 15:12] VITALS: BMI 21.7
[2019-08-25] MEDS ORDERED: Fentanyl 100 MCG/2 ML VIAL ONE ×2 (10:00→12:22)
[2019-08-25] MEDS ORDERED: B & O ONE (10:47)
[2019-08-25] MEDS ORDERED: PROPOFOL 200 MG/20 ML VIAL ONE (11:11)
[2019-08-25] MEDS ORDERED: Ondansetron PF 4 MG/2 ML Vial ONE (11:11)
[2019-08-25] MEDS ORDERED: Lidocaine 1% PF 5 ML VIAL ONE (11:11)
[2019-08-25] MEDS ORDERED: Rocuronium Bromide 10 MG/ML (10ML VIAL) ONE (11:11)
[2019-08-25] MEDS ORDERED: PHENYLEPHRINE-NS 100 MCG/ML 10 ML SYRINGE ONE (11:11)
[2019-08-25] MEDS ORDERED: EPHEDRINE 25 MG/5 ML SYRINGE ONE (11:11)
[2019-08-25] MEDS ORDERED: Glycopyrrolate 0.2 MG/ML 5 ML SYRINGE ONE (11:11)
[2019-08-25] MEDS ORDERED: Promethazine HCl 25 MG/ML VIAL SLOW IVP PRN (11:16)
[2019-08-25] MEDS ORDERED: Promethazine HCl 25 MG/ML VIAL IM PRN (11:16)
[2019-08-25] MEDS ORDERED: Ondansetron HCl/PF 4 MG/2 ML Vial IVP PRN (11:16)
[2019-08-25] MEDS ORDERED: D5 1/2 NS w/20 mEq KCL 1,000 ML IV SCH (12:15)
[2019-08-25] MEDS ORDERED: Dextrose 5% in Water 1,000 ML IV PRN (13:32)
[2019-08-25] MEDS ORDERED: Dextrose 50% Abboject 50 ML SYRINGE IVP PRN (13:32)
--- NOTE | 2019-08-25 14:36 | PRG ---
DATE OF SERVICE: 08/25/2019 Mr. Vizcaino is up on the floor. His urine is clear in a very slow continuous bladder irrigation. He is feeling fine. Minimal amount of discomfort. I talked with the nurse and the consult hospitalist; some help and care for his diabetes, his insulin orders and any blood pressure medicines he needs. He can start on clear liquids and be advanced to a renal diet as tolerated. We will keep him in bed today with PlexiPulses on, let him get up tomorrow, continue the bladder irrigation. His vital signs are stable. Job ID: [id number]
--- NOTE | 2019-08-25 15:18 | PDOC.HOSPP ---
- Subjective Encounter Date: 08/25/19 Encounter Time: 14:30 Subjective: no sob. Has some pain in the urethral area - Objective Vital Signs & Weight: Vital Signs (12 hours) Temp Pulse Resp BP Pulse Ox 08/25/19 13:00 97.2 F L 63 16 130/68 98 Weight Weight 123 lb Additional Labs: Accuchecks 08/25/19 14:51 POC Glucose 119 H - Exam General Appearance: awake alert Eye: PERRL, anicteric sclera ENT: no oropharyngeal lesions, moist mucosa Neck: supple, no JVD Heart: RRR, no murmur Respiratory: no wheezes, no rales Gastrointestinal: soft, non-tender, non-distended, normal bowel sounds Extremities: no cyanosis, no edema Neurological: cranial nerve grossly intact, no focal deficits Psychiatric: normal affect, A&O x 3 Hosp A/P (1) S/P TURP Code(s): Z90.79 - ACQUIRED ABSENCE OF OTHER GENITAL ORGAN(S) Status: Acute (2) Anemia, normocytic normochromic Code(s): D64.9 - ANEMIA, UNSPECIFIED Status: Chronic (3) DM type 2 (diabetes mellitus, type 2) Status: Chronic Qualifiers: Diabetes mellitus group home insulin use: with group home use (4) HTN (hypertension) Code(s): I10 - ESSENTIAL (PRIMARY) HYPERTENSION Status: Chronic Qualifiers: (5) Obstructive uropathy Code(s): N13.9 - OBSTRUCTIVE AND REFLUX UROPATHY, UNSPECIFIED Status: Chronic - Plan is s/p cystoscopy with turp for enlarged prostate, await operative note. hemostable continue norvasc, flomax, humalog sliding scale has slow bladder irrigation with no obvious blood seen to mobilize per uro advice
[2019-08-25] MEDS: Sodium Bicarbonate Tab 325 MG TAB PO SCH ×2 (15:40→20:42)
--- NOTE | 2019-08-25 16:10 | EKG ---
Test Reason : PREOP Blood Pressure : / mmHG Vent. Rate : 068 BPM Atrial Rate : 068 BPM P-R Int : 132 ms QRS Dur : 080 ms QT Int : 390 ms P-R-T Axes : 058 045 058 degrees QTc Int : 414 ms Normal sinus rhythm Normal ECG When compared with ECG of 20-MAY-2019 14:47, (Unconfirmed) Vent. rate has decreased BY 33 BPM Confirmed by NELLIE AN, SMiguelina (4) on 08/25/2019 4:09:44 PM Referred By: FILOMENA Confirmed By:DR. Damion BALLARD MD
[2019-08-25] MEDS: Acetaminophen 500 MG TAB PO PRN ×2 (17:23→21:30)
[2019-08-25] MEDS: Docusate 100 MG CAP PO SCH (20:42)
--- NOTE | 2019-08-25 20:49 | OP ---
DATE OF PROCEDURE: 08/25/2019 PREOPERATIVE DIAGNOSES: Urinary retention, bladder outlet obstruction. POSTOPERATIVE DIAGNOSES: Urinary retention, bladder outlet obstruction. PROCEDURE PERFORMED: Cysto, transurethral resection of the prostate. ANESTHETIC: General. ESTIMATED BLOOD LOSS: 200 mL. FINDINGS: Large trilobar hypertrophy few small bladder diverticula and trabeculation to ureteral orifices in normal position. No bladder tumor, foreign body, or stone. DRAINS PLACED: A 22-Gibraltarian Baltazar with about 45 mL in the balloon on continuous irrigation. Pathology sent a prostatic chips. INDICATIONS FOR PROCEDURE: This is a 63-year-old male, who presented with renal failure, found to have bilateral hydro and a greatly distended bladder. Catheter was placed. His renal function does improve down to a creatinine in the 5 range and it is likely in the next few weeks. We will start peritoneal dialysis. CMG showed that his bladder does work, but he is unable to urinate as a very high voiding pressure. For that reason, he is coming in for TURP. It has been discussed with him and his hospital security officer. He is a Yarsanism, but he has received Epogen or something like Epogen from Dr. Rodriguez and his hemoglobins well up over 11 at this point. DESCRIPTION OF PROCEDURE: After obtaining written and verbal consent from the patient after receiving a low dose of IV Levaquin, he was taken to the operating suite. He was placed in supine position on the treatment table. PlexiPulses were placed on his lower extremities and turned on. His Baltazar catheter was removed and he then was given a general anesthetic oral intubation. He was then placed in dorsal lithotomy position, sterilely prepped and draped. Cystoscopy was performed with a 22-Gibraltarian sheath, this was well lubricated and advanced under direct vision through the male urethra into the urinary bladder with the aid of a 30-degree lens and a video camera and monitor. The bladder was filled and emptied number of times and examined both the 30- and 70-degree lens with the findings above. The instruments were removed and a 24-Gibraltarian resectoscope sheath with visual obturator and a 30-degree lens and video camera and monitor were used to pass the instruments through the male urethra into the bladder. An Casarez resectoscope with 30-degree lens and Gyrus generator, Gyrus prostate loop were used. A large intravesical lobe was initially resected resecting up on off the trigone protecting the trigone and ureteral orifices back to the bladder neck. The floor was taken down from 5 to 7 o'clock from bladder neck to just proximal to the verumontanum. The left lobe was taken down from 1 o'clock to 5 o'clock and the right from 11 o'clock to 7 o'clock with the same landmarks. Apical tissue was removed and halfly bites. Coagulating current was used for hemostasis. The Ellik was used to evacuate all chips and clots. Reinspection found a few little chips and some of the small diverticula and these were removed. Once these were completed, hemostasis was obtained with electrocautery unit. Instruments were removed. A Baltazar catheter was placed with aid of a catheter guide. About 45 mL placed in the balloon, it was hand irrigated, it was clear. 60 mg B and O suppository was placed. He was taken out of the dorsal lithotomy position, returned to lying position, started on continuous bladder irrigation and awakened and moved to recovery room. Job ID: [id number]
[2019-08-25] MEDS: HumaLOG 300 UNITS/3 ML VIAL SC PRN (21:30)
--- NOTE | 2019-08-26 02:50 | CON ---
DATE OF CONSULTATION: 08/25/2019 CONSULTING PHYSICIAN: Dr. Ramos. REASON FOR CONSULTATION: Chronic kidney disease. REASON FOR ADMISSION: Postop care. HISTORY OF PRESENT ILLNESS: This is a 63-year-old male who was admitted after the TURP and is being evaluated. The patient does have chronic kidney disease and is under my care. He is having some pain, but no nausea, vomiting. No chest pain. PAST MEDICAL HISTORY: Positive for diabetes, hypertension, CKD, BPH, urinary retention. PAST SURGICAL HISTORY: None. HOME MEDICATIONS: 1. Flomax. 2. Norvasc. ALLERGIES: NO KNOWN DRUG ALLERGIES. SOCIAL HISTORY: No smoking, alcohol, or illicit drug abuse. FAMILY HISTORY: No history of kidney disease. REVIEW OF SYSTEMS: Rest all negative review of systems. PHYSICAL EXAMINATION: GENERAL: This is a well-built male, in no apparent distress. VITAL SIGNS: , pulse , blood pressure 120/74. HEENT: Atraumatic, normocephalic. Oral mucosa is moist. NECK: Supple. CV: S1, S2, regular. RESPIRATORY: GASTROINTESTINAL: Abdomen is soft. MUSCULOSKELETAL: 1+ edema. DERMATOLOGIC: No skin rash. NEUROLOGIC: Awake and alert. PSYCHIATRIC: Mood and affect normal. LABORATORY DATA: Not done today. ASSESSMENT AND PLAN: 1. Chronic kidney disease. We will monitor labs. 2. Hyponatremia. 3. History of acidosis. 4. History of hypertension. 5. Hyperglycemia. 6. We will order labs tomorrow. Avoid nephrotoxins. We will follow. Thank you for the consult. Job ID: [id number]
[2019-08-26 05:48] LABS: #Basophils 0.1 thou/uL (0.0-0.2); #Eosinphils 0.1 thou/uL (0.0-0.7); #Lymphocytes 1.3 thou/uL (1.20-3.40); #Monocytes 0.5 thou/uL (0.11-0.59); #Neutrophils 6.4 thou/uL (1.40-6.50); %Basophils 0.7 % (0.0-1.0); %Eosinophils 0.9 % (0.0-10.0); %Lymphocytes 15.4 % (21.0-51.0); %Monocytes 6.2 % (0.0-10.0); %Neutrophils 76.8 % (42.0-75.0); Hemoglobin 10.9 g/dL (14.0-18.0); Mean Corpuscular HGB CONC 33.1 g/dL (32.0-36.0); Mean Corpuscular Hemoglobin 28.8 pg (27.0-31.0); Mean Corpuscular Volume 87.1 fL (78.0-98.0); Platelet Count 177 thou/uL (130-400); RBC Distribution Width 12.2 % (11.5-14.5); Red Blood Cell (RBC) Count 3.79 mill/uL (4.70-6.10); White Blood Cell (WBC) Count 8.4 thou/uL (4.8-10.8)
[2019-08-26 05:55] LABS: ALT (SGPT) 12 U/L (8-55); AST (SGOT) 10 U/L (5-34); Albumin 3.7 g/dL (3.4-4.8); Alkaline Phosphatase 90 U/L (40-110); Anion Gap 13 mmol/L (10-20); BUN (Urea Nitrogen) 59 mg/dL (8.4-25.7); Bilirubin, Total 0.2 mg/dL (0.2-1.2); Calc. Creatinine Clearance 12 mL/min (70-130); Calcium 8.3 mg/dL (7.8-10.44); Carbon Dioxide 20 mmol/L (23-31); Chloride 106 mmol/L (98-107); Estimated GFR-MDRD 12; Globulin 2.3 g/dL (2.4-3.5); Glucose 121 mg/dL (80-115); Potassium 5.2 mmol/L (3.5-5.1); Sodium 134 mmol/L (136-145)
[2019-08-26] MEDS: Amlodipine 5 MG TAB PO SCH (09:05)
[2019-08-26] MEDS: Docusate 100 MG CAP PO SCH ×2 (09:05→20:19)
[2019-08-26] MEDS: Sodium Bicarbonate Tab 325 MG TAB PO SCH ×3 (09:05→20:19)
[2019-08-26] MEDS: Tamsulosin HCl 0.4 MG CAP PO SCH (09:07)
[2019-08-26] MEDS: HumaLOG 300 UNITS/3 ML VIAL SC PRN ×2 (12:19→15:41)
--- NOTE | 2019-08-26 14:03 | PRG ---
DATE OF SERVICE: 08/26/2019 SUBJECTIVE: The patient was seen and examined at bedside and overnight events noted. The patient denies any shortness of breath or chest pain or palpitation. No history of nausea or vomiting or diarrhea or fever or chills or cramps. OBJECTIVE: GENERAL: This is well-built male, in no apparent distress. VITAL SIGNS: Temperature 98.4. Heart rate 77. Respiratory rate 16. Blood pressure 149/77. HEENT: Atraumatic, normocephalic. Oral mucosa is moist. NECK: Supple. CARDIOVASCULAR: S1, S2 heard. Rate and rhythm regular. RESPIRATORY: Clear to auscultation. GASTROINTESTINAL: Abdomen is soft. MUSCULOSKELETAL: No tenderness. No edema. DERMATOLOGIC: No skin rash. NEUROLOGIC: Alert and awake and oriented x3. No focal neurologic deficits. Moving all the extremities. PSYCHIATRIC: Mood and affect normal. LABORATORY DATA: Potassium 5.2, BUN is 59, creatinine is 4.2. ASSESSMENT AND PLAN: 1. Chronic kidney disease, stage 5. Plan to start on dialysis immediately in the immediate future. The patient is having a pending appointment with Dr. Miranda for discussion of PD catheter placement. 2. Hyperkalemia, mild. 3. Acidosis. 4. Edema. 5. Hypertension. Follow up with Dr. Miranda for PD catheter, and PD nurse is working to train him and his family to train for home dialysis and start dialysis soon. Job ID: [id number]
--- NOTE | 2019-08-26 15:06 | PDOC.HOSPP ---
- Subjective Encounter Date: 08/26/19 Encounter Time: 10:30 Subjective: pt up in bed complains of pain around his suprapubic area. - Objective Vital Signs & Weight: Vital Signs (12 hours) Temp Pulse Resp BP BP Pulse Ox 08/26/19 10:59 98.4 F 76 16 149/77 H 98 08/26/19 09:05 79 140/76 08/26/19 07:34 98.7 F 79 18 140/76 99 08/26/19 03:14 98.5 F 72 16 138/74 98 Weight Weight 123 lb I&O: 08/25/19 08/26/19 08/27/19 06:59 06:59 06:59 Intake Total 650 Output Total 7593 1272 Balance -1625 -2655 Result Diagrams: 08/26/19 05:19 08/26/19 05:19 Additional Labs: Accuchecks 08/26/19 08/26/19 08/26/19 11:03 05:55 00:23 POC Glucose 177 H 129 H 66 L 08/25/19 20:48 POC Glucose 227 H Hospitalist ROS - Review of Systems Cardiovascular: denies: chest pain, palpitations, orthopnea, paroxysmal noc. dyspnea, edema, light headedness, other Gastrointestinal: denies: nausea, vomiting, abdominal pain, diarrhea, constipation, melena, hematochezia, other Genitourinary: denies: dysuria, frequency, incontinence, hematuria, retention, other - Medication Medications: Active Medications Generic Name Dose Route Start Last Admin Trade Name Freq PRN Reason Stop Dose Admin Amlodipine Besylate 5 mg 08/26/19 09:00 08/26/19 09:05 Norvasc PO 5 mg DAILY DIXON Administration Docusate Sodium 100 mg 08/25/19 21:00 08/26/19 09:05 Colace PO 100 mg BID DIXON Administration Insulin Human Lispro 0 units 08/25/19 13:32 08/26/19 12:19 Humalog SC 2 unit .MILD SLIDING SCALE PRN Administration MILD SLIDING SCALE Protocol Sodium Bicarbonate 650 mg 08/25/19 15:00 08/26/19 09:05 Bicarbonate, Sodium PO 650 mg TID DIXON Administration Sodium Chloride 10 ml 08/25/19 21:00 08/26/19 09:06 Flush - Normal Saline IVF 10 ml Q12HR DIXON Administration Tamsulosin HCl 0.4 mg 08/26/19 09:00 08/26/19 09:07 Flomax PO 0.4 mg DAILY DIXON Administration - Exam ENT: negative: normocephalic atraumatic, no oropharyngeal lesions, moist mucosa , dry oral mucosa Neck: negative: supple, symmetric, no JVD, no thyromegaly, no lymphadenopathy, no carotid bruit, JVD Heart: negative: RRR, no murmur, no gallops, no rubs, normal peripheral pulses, irregular, diminshed peripheral pulses, murmur present, II/IV, III/IV Hosp A/P - Plan Hosp A/P (1) S/P TURP Code(s): Z90.79 - ACQUIRED ABSENCE OF OTHER GENITAL ORGAN(S) Status: Acute (2) Anemia, normocytic normochromic Code(s): D64.9 - ANEMIA, UNSPECIFIED Status: Chronic (3) DM type 2 (diabetes mellitus, type 2) Status: Chronic Qualifiers: Diabetes mellitus detention insulin use: with long term care phlebotomist use (4) HTN (hypertension) Code(s): I10 - ESSENTIAL (PRIMARY) HYPERTENSION Status: Chronic Qualifiers: (5) Obstructive uropathy Code(s): N13.9 - OBSTRUCTIVE AND REFLUX UROPATHY, UNSPECIFIED Status: Chronic - Plan is s/p cystoscopy with turp for enlarged prostate, await operative note. hemostable continue norvasc, flomax, humalog sliding scale has slow bladder irrigation with no obvious blood seen to mobilize per uro advice 08/25 blood sugars acceptable, bp stable will titrate bp meds as needed.
[2019-08-27 07:19] LABS: Anion Gap 15 mmol/L (10-20); BUN (Urea Nitrogen) 64 mg/dL (8.4-25.7); Calc. Creatinine Clearance 13 mL/min (70-130); Calcium 8.7 mg/dL (7.8-10.44); Carbon Dioxide 21 mmol/L (23-31); Chloride 105 mmol/L (98-107); Estimated GFR-MDRD 13; Glucose 88 mg/dL (80-115); Potassium 4.7 mmol/L (3.5-5.1); Sodium 136 mmol/L (136-145)
--- NOTE | 2019-08-27 07:30 | PRG ---
DATE OF SERVICE: 08/26/2019 He is postop day #1. He is afebrile with stable vital signs. His urine output has been good. His urine was clear this morning. We stopped the CBI. His Baltazar catheter was removed this afternoon, he has voided one time without difficulty. Still somewhat bloody, so he is not going to be able to go home today. Hopefully, as the evening goes on, he will go home in the morning. I probably will check a postvoid residual ultrasound on him tomorrow morning. The hospitalist team has seen him and they have helped with care of him. Also Dr. Diego has seen him. His lab work this morning, his hemoglobin was 10.9 and his creatinine was 4.8. His sugars have been okay. His pathology is pending. His calves are nontender. He is not having shortness of breath. He is tolerating a diet without difficulty. He is stable postop day #1, hopefully will go home tomorrow. Job ID: [id number]
[2019-08-27] MEDS ORDERED: Amlodipine 5 MG TAB PO SCH (09:30)
[2019-08-27] MEDS: Tamsulosin HCl 0.4 MG CAP PO SCH (09:32)
[2019-08-27] MEDS: Docusate 100 MG CAP PO SCH (09:32)
[2019-08-27] MEDS: Sodium Bicarbonate Tab 325 MG TAB PO SCH ×2 (09:32→15:40)
[2019-08-27] MEDS: Amlodipine 5 MG TAB PO SCH (09:32)
[2019-08-27] MEDS ORDERED: EPOETIN ALFA-EPBX (ESRD) 3,000 UNIT/ML VIAL SC SCH (10:30)
--- NOTE | 2019-08-27 11:16 | PRG ---
DATE OF SERVICE: 08/27/2019 SUBJECTIVE: Patient was seen and examined at bedside and overnight events noted. Patient denies any shortness of breath or chest pain or palpitation. No history of nausea or vomiting or diarrhea or fever or chills or cramps. OBJECTIVE: GENERAL: This is a well-built male, in no apparent distress. VITAL SIGNS: Temperature 98.5, pulse 76, respiratory rate 18, and blood pressure 134/81. HEENT: Atraumatic, normocephalic. Oral mucosa is moist. NECK: Supple. CARDIOVASCULAR: S1, S2 heard. Rate and rhythm regular. RESPIRATORY: Clear to auscultation. GASTROINTESTINAL: Abdomen is soft. MUSCULOSKELETAL: No tenderness. No edema. DERMATOLOGIC: No skin rash. NEUROLOGIC: Alert and awake and oriented x3. No focal neurologic deficits. Moving all the extremities. PSYCHIATRIC: Mood and affect normal. LABORATORY DATA: Potassium is 4.7, BUN is 64, and creatinine is 4.69. ASSESSMENT AND PLAN: 1. Chronic kidney disease, stage 5. No acute indication for dialysis. Labs are stable. 2. Urinary retention and benign prostatic hypertrophy. Follow with Urology. 3. Acidosis. 4. Edema. 5. Hypertension. Overall, labs are stable. No acute indication for dialysis. We will continue to monitor. Job ID: [id number]
--- NOTE | 2019-08-27 11:31 | PRG ---
DATE OF SERVICE: 08/27/2019 He is postop day #2, status post TURP . His vital signs are stable. He is afebrile. It looks like he is voiding probably 250 per void and cleared up nicely. He still leaving residuals 250 to 300 range when I check it one more time. I think his residuals distended his bladder was when he presented with renal failure. I am not going to replace a [place] unless his residuals are up one more time higher than they have been running. I have set up followup for him in a couple of weeks and talk with him about staying off aspirin, nonsteroidals, will go home on some Cipro and Colace. His calves are nontender. His abdomen is soft. His bladder is not remarkably distended at all and is nontender. Hopefully, he will be discharged in a couple of hours. Job ID: [id number]
[2019-08-27] MEDS: HumaLOG 300 UNITS/3 ML VIAL SC PRN (12:30)
[2019-08-27 13:03] VITALS: BP 168/85; TEMP 98.2
--- NOTE | 2019-08-28 05:55 | PDOC.HOSPP ---
- Subjective Encounter Date: 08/27/19 Encounter Time: 08:45 Subjective: pt up in bed no complains - Objective Vital Signs & Weight: Weight Weight 123 lb I&O: 08/26/19 08/27/19 08/28/19 06:59 06:59 06:59 Intake Total 650 3058 1748 Output Total 8105 6915 1485 Balance -6164 -6211 263 Result Diagrams: 08/26/19 05:19 08/27/19 06:27 Additional Labs: Accuchecks 08/27/19 08/27/19 15:36 10:39 POC Glucose 114 H 160 H Hospitalist ROS - Review of Systems Cardiovascular: denies: chest pain, palpitations, orthopnea, paroxysmal noc. dyspnea, edema, light headedness, other Gastrointestinal: denies: nausea, vomiting, abdominal pain, diarrhea, constipation, melena, hematochezia, other Genitourinary: denies: dysuria, frequency, incontinence, hematuria, retention, other - Exam Neck: negative: supple, symmetric, no JVD, no thyromegaly, no lymphadenopathy, no carotid bruit, JVD Heart: negative: RRR, no murmur, no gallops, no rubs, normal peripheral pulses, irregular, diminshed peripheral pulses, murmur present, II/IV, III/IV Respiratory: negative: CTAB, no wheezes, no rales, no ronchi, normal chest expansion, no tachypnea, normal percussion, rales, rhonchi, tachypneic, wheezes Hosp A/P - Plan Hosp A/P (1) S/P TURP Code(s): Z90.79 - ACQUIRED ABSENCE OF OTHER GENITAL ORGAN(S) Status: Acute (2) Anemia, normocytic normochromic Code(s): D64.9 - ANEMIA, UNSPECIFIED Status: Chronic (3) DM type 2 (diabetes mellitus, type 2) Status: Chronic Qualifiers: Diabetes mellitus assisted insulin use: with 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 hemostable continue norvasc, flomax, humalog sliding scale has slow bladder irrigation with no obvious blood seen to mobilize per uro advice 08/25 blood sugars acceptable, bp stable will titrate bp meds as needed. 08/26 pt's vitals stable, he is feeling well. will sign off.
[2019-08-28] MEDS ORDERED: Amlodipine 5 MG TAB PO SCH (09:00)
== END 2019-08-27 16:00 | disposition home or self-care (01) | DRG 713 ==
LOC: SDC 07:10 → SURG B 13:23
PROVIDERS: ADMIT Urology; ATTEND Urology
PROC: 0VT08ZZ Resection of Prostate, Via Natural or Artificial Opening Endoscopic (ICD-10-PCS; principal; 2019-08-25)
PROC: 0TJB8ZZ Inspection of Bladder, Via Natural or Artificial Opening Endoscopic (ICD-10-PCS; 2019-08-25)
DX: N40.1 Benign prostatic hyperplasia with lower urinary tract symptoms (principal); N13.8 Other obstructive and reflux uropathy; E87.1 Hypo-osmolality and hyponatremia; E87.2 Acidosis; I12.0 Hypertensive chronic kidney disease with stage 5 chronic kidney disease or end stage renal disease; N18.5 Chronic kidney disease, stage 5; R33.8 Other retention of urine; G40.909 Epilepsy, unspecified, not intractable, without status epilepticus; E11.22 Type 2 diabetes mellitus with diabetic chronic kidney disease; D63.1 Anemia in chronic kidney disease; E11.65 Type 2 diabetes mellitus with hyperglycemia; E87.6 Hypokalemia; Z79.4 Long term (current) use of insulin
CPT/HCPCS: 36415; 36416; 80048; 80053; 85025; 88305; 93005; 93010; J1956; J2001; J2405; J2704; J3010; Q5105

== ENCOUNTER 2021-05-23 12:28 | Outpatient (CLI) | payer MEDICARE, MEDICAID | END 2021-05-23 12:29 | disposition home or self-care (01) | LOC: RAD 12:28 | PROVIDERS: ATTEND Internal Medicine Nephrology | DX: N18.5 Chronic kidney disease, stage 5 (principal) | CPT/HCPCS: 71046 ==

== ENCOUNTER 2021-10-19 11:03 | Outpatient (CLI) | payer MEDICARE, MEDICAID | END 2021-10-19 11:04 | disposition home or self-care (01) | LOC: LABBT 11:03 | PROVIDERS: ATTEND Internal Medicine | DX: Z20.822 Contact with and (suspected) exposure to COVID-19 (principal) | CPT/HCPCS: 87811 ==

== ENCOUNTER 2021-10-24 06:22 | Day surgery (SDC) | payer MEDICARE, MEDICAID ==
[2021-10-21 11:57] VITALS: BMI 28.1
[2021-10-24] MEDS ORDERED: Lidocaine 1% PF 5 ML VIAL ONE (07:57)
[2021-10-24] MEDS ORDERED: PROPOFOL 200 MG/20 ML VIAL ONE (07:57)
[2021-10-24] MEDS ORDERED: Phenylephrine 10 MG/ML VIAL ONE (07:57)
== END 2021-10-24 09:17 | disposition home or self-care (01) ==
LOC: SDC 06:22
PROVIDERS: ATTEND Internal Medicine
PROC: 0DBM8ZX Excision of Descending Colon, Via Natural or Artificial Opening Endoscopic, Diagnostic (ICD-10-PCS; principal; 2021-10-24)
PROC: 0DBN8ZX Excision of Sigmoid Colon, Via Natural or Artificial Opening Endoscopic, Diagnostic (ICD-10-PCS; 2021-10-24)
DX: Z12.11 Encounter for screening for malignant neoplasm of colon (principal); D12.4 Benign neoplasm of descending colon; K64.8 Other hemorrhoids; K57.30 Diverticulosis of large intestine without perforation or abscess without bleeding; Z79.899 Other long term (current) drug therapy; Z91.013 Allergy to seafood
CPT/HCPCS: 36416; 88305; J2370; J2704